=== PATIENT | female | born 1950 | race Caucasian/White ===

== ENCOUNTER → 2017-11-12 | Outpatient (CLI) | payer MEDICARE ==
[~2017-11-12] MED LIST: BISHYD10; BUPR150T2; CEFD300 PO; CEPH500 PO; CLIN150 PO; CLON.1 PO; CYCL10 PO; ERYTHROMYCIN; ESCI10 PO; EZET10-10; FURO20; FURO40 PO; GLIM2 PO; GLIM4 PO; GLIMEPIRIDE PO; GLUCOPHAGE; HYDACE5 PO; HYDACE7.5 PO; HYDMOR2 PO; IBUP600 PO; IBUP800; INS70/30PN; INSUL100I SC; LISI20 PO; LOSA50 PO; LOSARTAN PO; LOSARTAN POTAS100 MG PO; LOVA20 PO; LOVA40; LOVA40 PO; METF500; METF500 PO; METO25ER; METO25ER PO; MORP30ER; Novolin R100 UNIT/M SC; Novolin R100 UNIT/M SS; OLME20 PO; ONDA4 PO; OXAP600; OXYACE5T PO; OXYC5; PHENTERMINE PO; POTCHL20ER; PRED20 PO; Prednisone10 MG PO; RXCYCL10 PO; TIZANIDINE HCL2 MG; VALA500 PO; VALS80; Ventolin/Prove6.7 GM; ZOLOFT; Zovirax400 MG PO; [UNRECOGNIZED DRUG - OTHER]; [UNRECOGNIZED DRUG - OTHER]; [UNRECOGNIZED DRUG - REMARK]; [UNRECOGNIZED DRUG - REMARK]
[2017-11-12 11:32] LABS: BASOPHILS ABSOLUTE AUTO 0.08 K/mm3 (0.00-0.23); BASOPHILS PERCENT AUTO 1 % (0-2); EOSINOPHILS ABSOLUTE AUTO 0.46 K/mm3 (0.00-0.68); EOSINOPHILS PERCENT AUTO 3 % (0-6); Hematocrit 39.1 % (33.0-51.0); Hemoglobin 13.3 g/dL (11.5-16.0); IMMATURE GRAN ABSOLUTE AUTO 0.06 K/mm3 (0.00-0.10); IMMATURE GRAN PERCENT AUTO 0 % (0-1); LYMPHOCYTES ABSOLUTE AUTO 1.89 K/mm3 (0.84-5.20); LYMPHOCYTES PERCENT AUTO 14 % (21-46); MONOCYTES ABSOLUTE AUTO 0.55 K/mm3 (0.16-1.47); MONOCYTES PERCENT AUTO 4 % (4-13); Mean Corpuscular HGB 30.2 pg (26.0-34.0); Mean Corpuscular Volume 89 fL (80-100); Mean Platelet Volume 11.5 fL (9.1-12.4); NEUTROPHILS ABSOLUTE AUTO 10.82 K/mm3 (1.96-9.15); NEUTROPHILS PERCENT AUTO 78 % (41-73); Platelet Count 225 K/mm3 (150-400); RDW Coefficient Variation 12.4 % (11.7-14.2); RDW Standard Deviation 40.6 fL (35.1-46.3); Red Blood Cell Count 4.41 M/mm3 (3.80-5.20); White Blood Cell Count 13.86 K/mm3 (4.00-11.30)
[2017-11-12 11:46] LABS: Albumin, Blood 3.1 g/dL (3.4-5.0); Albumin/Globulin Ratio 0.8 (0.8-1.8); Bilirubin, Total 0.6 mg/dL (0.1-1.0); Bun/Creatinine Ratio 14.9 (12.0-20.0); Calcium, Blood 8.2 mg/dL (8.5-10.1); Creatinine, Blood 1.34 mg/dL (0.40-1.00); Potassium, Blood 4.4 mmol/L (3.5-5.5); Total Protein, Blood 7.1 g/dL (6.4-8.2)
== END | disposition home or self-care (01) ==
LOC: LAB SHORT 11:29 → LAB EV 11:29
PROVIDERS: Physician Assistant
DX: E11.37X1 Type 2 diabetes mellitus with diabetic macular edema, resolved following treatment, right eye (principal); I95.9 Hypotension, unspecified
CPT/HCPCS: 80053; 85025

== ENCOUNTER 2018-12-09 18:13 | Emergency (ER) | payer MEDICARE ==
[~2018-12-09] VITALS: Ht 157.5 cm; Wt 108.9 kg
[2018-12-09] MEDS ORDERED: CLIN300 PO (19:25)
[2018-12-09] MEDS ORDERED: METO50ER PO (19:26)
[2018-12-09] MEDS ORDERED: SPIR25 PO (19:26)
[2018-12-09] MEDS ORDERED: MOTION RELIEF25 MG PO (19:26)
[2018-12-09] MEDS ORDERED: NAPR500 PO (19:26)
[2018-12-09] MEDS ORDERED: METCAR500 PO (19:27)
[2018-12-09] MEDS ORDERED: LOSA50 PO (19:28)
[2018-12-09] MEDS ORDERED: ESCI10 PO (19:28)
[2018-12-09] MEDS ORDERED: OXYB5 PO (19:28)
[2018-12-09] MEDS ORDERED: INSULIN SC (19:29)
== END 2018-12-09 19:34 | disposition home or self-care (01) ==
LOC: ER 18:13
DX: G43.009 Migraine without aura, not intractable, without status migrainosus (principal); I10 Essential (primary) hypertension; E11.9 Type 2 diabetes mellitus without complications; E78.00 Pure hypercholesterolemia, unspecified; Z79.899 Other long term (current) drug therapy
CPT/HCPCS: 36415; 96361; 96374; 96375; 99283-25; J0780; J1200; J1885; J7030

== ENCOUNTER 2019-01-28 23:01 | Emergency (ER) | payer MEDICARE ==
[~2019-01-28] VITALS: Ht 154.9 cm; Wt 106.6 kg
[~2019-01-28 23:01] MED LIST changes: +CLIN300 PO; +INSULIN SC; +METCAR500 PO; +METO50ER PO; +MOTION RELIEF25 MG PO; +NAPR500 PO; +OXYB5 PO; +SPIR25 PO
[2019-01-29 00:50] LABS: BASOPHILS ABSOLUTE AUTO 0.05 K/mm3 (0.00-0.23); BASOPHILS PERCENT AUTO 1 % (0-2); EOSINOPHILS PERCENT AUTO 4 % (0-6); Hematocrit 38.9 % (33.0-51.0); Hemoglobin 12.8 g/dL (11.5-16.0); IMMATURE GRAN ABSOLUTE AUTO 0.06 K/mm3 (0.00-0.10); IMMATURE GRAN PERCENT AUTO 1 % (0-1); LYMPHOCYTES PERCENT AUTO 17 % (21-46); MONOCYTES ABSOLUTE AUTO 0.97 K/mm3 (0.16-1.47); MONOCYTES PERCENT AUTO 9 % (4-13); Mean Corpuscular HGB 31.1 pg (26.0-34.0); Mean Corpuscular HGB Conc 32.9 g/dL (31.5-36.5); Mean Corpuscular Volume 95 fL (80-100); Mean Platelet Volume 11.1 fL (9.1-12.4); NEUTROPHILS ABSOLUTE AUTO 7.55 K/mm3 (1.96-9.15); NEUTROPHILS PERCENT AUTO 69 % (41-73); Platelet Count 218 K/mm3 (150-400); RDW Coefficient Variation 13.3 % (11.7-14.2); Red Blood Cell Count 4.11 M/mm3 (3.80-5.20); White Blood Cell Count 10.93 K/mm3 (4.00-11.30)
[2019-01-29 01:10] LABS: Albumin, Blood 3.3 g/dL (3.4-5.0); Albumin/Globulin Ratio 0.8 (0.8-1.8); Bilirubin, Total 0.4 mg/dL (0.1-1.0); Bun/Creatinine Ratio 18.8 (12.0-20.0); Calcium, Blood 8.1 mg/dL (8.5-10.1); Creatinine, Blood 1.44 mg/dL (0.40-1.00); Globulin, Blood 4.2 g/dL (2.2-4.0); Potassium, Blood 3.8 mmol/L (3.5-5.5); Total Protein, Blood 7.5 g/dL (6.4-8.2)
[2019-01-29] MEDS ORDERED: BENZ100A PO (01:21)
[2019-01-29] MEDS ORDERED: ONDA4ODT MM (01:21)
== END 2019-01-29 01:49 | disposition home or self-care (01) ==
LOC: ER 23:01
PROVIDERS: Emergency Medicine
DX: B34.9 Viral infection, unspecified (principal); E86.0 Dehydration; Z88.0 Allergy status to penicillin; Z88.8 Allergy status to other drugs, medicaments and biological substances; Z88.2 Allergy status to sulfonamides; Z88.6 Allergy status to analgesic agent; Z88.1 Allergy status to other antibiotic agents; Z79.899 Other long term (current) drug therapy; Z79.4 Long term (current) use of insulin; I10 Essential (primary) hypertension; E11.9 Type 2 diabetes mellitus without complications
CPT/HCPCS: 36415; 71046; 80053; 83690; 85025; 96361; 96374; 99284-25; J2405; J7030

== ENCOUNTER 2019-03-22 10:34 | Emergency (ER) | payer MEDICARE ==
[~2019-03-22] VITALS: Ht 157.5 cm; Wt 99.8 kg
[~2019-03-22 10:34] MED LIST changes: +BENZ100A PO; +ONDA4ODT MM
[2019-03-22] MEDS ORDERED: VENL37.5ER PO (11:17)
[2019-03-22 11:56] LABS: BASOPHILS ABSOLUTE AUTO 0.07 K/mm3 (0.00-0.23); BASOPHILS PERCENT AUTO 1 % (0-2); EOSINOPHILS ABSOLUTE AUTO 0.17 K/mm3 (0.00-0.68); EOSINOPHILS PERCENT AUTO 1 % (0-6); Hematocrit 43.1 % (33.0-51.0); Hemoglobin 13.9 g/dL (11.5-16.0); IMMATURE GRAN ABSOLUTE AUTO 0.07 K/mm3 (0.00-0.10); IMMATURE GRAN PERCENT AUTO 1 % (0-1); LYMPHOCYTES ABSOLUTE AUTO 1.31 K/mm3 (0.84-5.20); LYMPHOCYTES PERCENT AUTO 9 % (21-46); MONOCYTES ABSOLUTE AUTO 0.85 K/mm3 (0.16-1.47); MONOCYTES PERCENT AUTO 6 % (4-13); Mean Corpuscular HGB 30.6 pg (26.0-34.0); Mean Corpuscular HGB Conc 32.3 g/dL (31.5-36.5); Mean Corpuscular Volume 95 fL (80-100); Mean Platelet Volume 12.5 fL (9.1-12.4); NEUTROPHILS ABSOLUTE AUTO 11.46 K/mm3 (1.96-9.15); NEUTROPHILS PERCENT AUTO 82 % (41-73); Platelet Count 235 K/mm3 (150-400); RDW Coefficient Variation 13.2 % (11.7-14.2); RDW Standard Deviation 46.1 fL (35.1-46.3); Red Blood Cell Count 4.54 M/mm3 (3.80-5.20); White Blood Cell Count 13.93 K/mm3 (4.00-11.30)
[2019-03-22 12:07] LABS: Bun/Creatinine Ratio 22.4 (12.0-20.0); Calcium, Blood 8.8 mg/dL (8.5-10.1); Creatinine, Blood 1.56 mg/dL (0.40-1.00); Potassium, Blood 4.4 mmol/L (3.5-5.5)
[2019-03-22] MEDS ORDERED: PROM25 PO (12:28)
== END 2019-03-22 12:51 | disposition home or self-care (01) ==
LOC: ER 10:34
PROVIDERS: Emergency Medicine
DX: R11.2 Nausea with vomiting, unspecified (principal); L08.9 Local infection of the skin and subcutaneous tissue, unspecified; T36.8X5A Adverse effect of other systemic antibiotics, initial encounter; Z88.0 Allergy status to penicillin; Z88.2 Allergy status to sulfonamides; Z88.1 Allergy status to other antibiotic agents; Z88.6 Allergy status to analgesic agent; Z88.8 Allergy status to other drugs, medicaments and biological substances; Z79.899 Other long term (current) drug therapy; I10 Essential (primary) hypertension; E11.9 Type 2 diabetes mellitus without complications
CPT/HCPCS: 36415; 80048; 85025; 96361; 96374; 96375; 99283-25; J2405; J7030

== ENCOUNTER 2019-04-05 21:22 | Emergency (ER) | payer MEDICARE ==
[~2019-04-05] VITALS: Ht 157.5 cm; Wt 99.8 kg
[~2019-04-05 21:22] MED LIST changes: +PROM25 PO; +VENL37.5ER PO
[2019-04-05 22:07] LABS: BASOPHILS PERCENT AUTO 1 % (0-2); EOSINOPHILS ABSOLUTE AUTO 0.44 K/mm3 (0.00-0.68); EOSINOPHILS PERCENT AUTO 2 % (0-6); Hematocrit 43.7 % (33.0-51.0); Hemoglobin 14.5 g/dL (11.5-16.0); IMMATURE GRAN ABSOLUTE AUTO 0.08 K/mm3 (0.00-0.10); IMMATURE GRAN PERCENT AUTO 0 % (0-1); LYMPHOCYTES ABSOLUTE AUTO 2.54 K/mm3 (0.84-5.20); LYMPHOCYTES PERCENT AUTO 13 % (21-46); MONOCYTES ABSOLUTE AUTO 1.11 K/mm3 (0.16-1.47); MONOCYTES PERCENT AUTO 6 % (4-13); Mean Corpuscular HGB 30.5 pg (26.0-34.0); Mean Corpuscular HGB Conc 33.2 g/dL (31.5-36.5); Mean Corpuscular Volume 92 fL (80-100); NEUTROPHILS ABSOLUTE AUTO 14.66 K/mm3 (1.96-9.15); NEUTROPHILS PERCENT AUTO 78 % (41-73); Platelet Count 279 K/mm3 (150-400); RDW Standard Deviation 43.5 fL (35.1-46.3); Red Blood Cell Count 4.76 M/mm3 (3.80-5.20); White Blood Cell Count 18.93 K/mm3 (4.00-11.30)
[2019-04-05 22:26] LABS: Albumin, Blood 3.9 g/dL (3.4-5.0); Albumin/Globulin Ratio 0.8 (0.8-1.8); Bilirubin, Total 0.6 mg/dL (0.1-1.0); Bun/Creatinine Ratio 21.3 (12.0-20.0); Calcium, Blood 9.2 mg/dL (8.5-10.1); Creatinine, Blood 1.41 mg/dL (0.40-1.00); Globulin, Blood 4.7 g/dL (2.2-4.0); Potassium, Blood 4.2 mmol/L (3.5-5.5); Total Protein, Blood 8.6 g/dL (6.4-8.2)
[2019-04-05 23:45] LABS: Source, Urine Clean Catch
[2019-04-05 23:52] LABS: Bilirubin, Urine Neg (Neg); Blood, Urine 1+ (Neg); Glucose Qualitative, Urine Neg (Neg); Ketones, Urine 1+ (Neg); Leukocyte Esterase, Urine 2+ (Neg); Nitrite, Urine Neg (Neg); Protein, Urine 1+ (Neg); Urobilinogen, Urine NORM (Normal)
[2019-04-05 23:57] LABS: Appearance, Urine Hazy (Clear); Color, Urine Yellow (P-Yellow)
[2019-04-06 00:25] LABS: Bacteria Many /hpf; Red Blood Cells, Urine Rare /hpf (0-2); Squamous Epithelial Cells Mod /hpf (Few); White Blood Cells, Urine 25-50 /hpf (0-5)
[2019-04-06] MEDS ORDERED: Keflex500 MG PO (01:18)
== END 2019-04-06 02:03 | disposition home or self-care (01) ==
LOC: ER 21:22
PROVIDERS: Emergency Medicine
DX: E86.0 Dehydration (principal); Z88.0 Allergy status to penicillin; Z88.2 Allergy status to sulfonamides; Z88.6 Allergy status to analgesic agent; Z88.1 Allergy status to other antibiotic agents; Z91.048 Other nonmedicinal substance allergy status; Z79.899 Other long term (current) drug therapy; I10 Essential (primary) hypertension; E11.9 Type 2 diabetes mellitus without complications; E78.5 Hyperlipidemia, unspecified
CPT/HCPCS: 36415; 80053; 81001; 83605; 83690; 85025; 87086; 93005; 93010; 96361; 96365; 96375; 99283-25; J0696; J2405; J7030

== ENCOUNTER 2019-06-08 11:10 | Emergency (ER) | payer MEDICARE ==
[~2019-06-08] VITALS: Ht 157.5 cm; Wt 97.5 kg
[~2019-06-08 11:10] MED LIST changes: +Keflex500 MG PO
[2019-06-08 11:39] LABS: BASOPHILS ABSOLUTE AUTO 0.07 K/mm3 (0.00-0.23); BASOPHILS PERCENT AUTO 1 % (0-2); EOSINOPHILS ABSOLUTE AUTO 0.56 K/mm3 (0.00-0.68); EOSINOPHILS PERCENT AUTO 5 % (0-6); Hematocrit 39.7 % (33.0-51.0); Hemoglobin 13.2 g/dL (11.5-16.0); IMMATURE GRAN ABSOLUTE AUTO 0.03 K/mm3 (0.00-0.10); IMMATURE GRAN PERCENT AUTO 0 % (0-1); LYMPHOCYTES ABSOLUTE AUTO 2.87 K/mm3 (0.84-5.20); LYMPHOCYTES PERCENT AUTO 27 % (21-46); MONOCYTES ABSOLUTE AUTO 0.82 K/mm3 (0.16-1.47); MONOCYTES PERCENT AUTO 8 % (4-13); Mean Corpuscular HGB Conc 33.2 g/dL (31.5-36.5); Mean Corpuscular Volume 93 fL (80-100); Mean Platelet Volume 12.6 fL (9.1-12.4); NEUTROPHILS ABSOLUTE AUTO 6.47 K/mm3 (1.96-9.15); NEUTROPHILS PERCENT AUTO 60 % (41-73); Platelet Count 171 K/mm3 (150-400); RDW Coefficient Variation 12.5 % (11.7-14.2); RDW Standard Deviation 42.5 fL (35.1-46.3); Red Blood Cell Count 4.26 M/mm3 (3.80-5.20); White Blood Cell Count 10.82 K/mm3 (4.00-11.30)
[2019-06-08 11:51] LABS: Albumin, Blood 3.5 g/dL (3.4-5.0); Albumin/Globulin Ratio 0.8 (0.8-1.8); Bilirubin, Total 0.5 mg/dL (0.1-1.0); Creatinine, Blood 1.13 mg/dL (0.40-1.00); Globulin, Blood 4.4 g/dL (2.2-4.0); Potassium, Blood 4.2 mmol/L (3.5-5.5); Total Protein, Blood 7.9 g/dL (6.4-8.2)
[2019-06-08 11:55] LABS: Appearance, Urine Clear (Clear); Bilirubin, Urine Neg (Neg); Blood, Urine Neg (Neg); Color, Urine Yellow (P-Yellow); Glucose Qualitative, Urine Neg (Neg); Ketones, Urine Neg (Neg); Leukocyte Esterase, Urine 2+ (Neg); Nitrite, Urine Neg (Neg); Protein, Urine Neg (Neg); Specific Gravity, Urine 1.015 (1.003-1.022); Urobilinogen, Urine NORM (Normal)
[2019-06-08 12:08] LABS: Red Blood Cells, Urine 0-2 /hpf (0-2); Squamous Epithelial Cells Many /hpf (Few)
[2019-06-08] MEDS ORDERED: Atarax10 MG PO (12:08)
[2019-06-08] MEDS ORDERED: Lovastatin10 MG PO (12:08)
[2019-06-08 12:09] LABS: Bacteria Mod /hpf
[2019-06-08] MEDS ORDERED: METFORMIN HCL500 MG PO (12:09)
[2019-06-08] MEDS ORDERED: METOPROLOL ER-1 EAC1 PO (12:09)
[2019-06-08] MEDS ORDERED: MOTION RELIEF25 MG PO (15:08)
[2019-06-08] MEDS ORDERED: DIAZ2 PO (15:08)
== END 2019-06-08 15:34 | disposition home or self-care (01) ==
LOC: ER 11:10
PROVIDERS: Emergency Medicine
DX: R42 Dizziness and giddiness (principal); Z88.0 Allergy status to penicillin; Z88.2 Allergy status to sulfonamides; Z88.6 Allergy status to analgesic agent; Z88.1 Allergy status to other antibiotic agents; Z88.8 Allergy status to other drugs, medicaments and biological substances; Z79.899 Other long term (current) drug therapy; Z79.84 Long term (current) use of oral hypoglycemic drugs; I10 Essential (primary) hypertension; E11.9 Type 2 diabetes mellitus without complications; E78.00 Pure hypercholesterolemia, unspecified
CPT/HCPCS: 70450; 80053; 81001; 82947; 85025; 87086; 93005; 93010; 99284-25; A9270-GY

== ENCOUNTER 2019-08-19 09:34 | Emergency (ER) | payer MEDICARE ==
[~2019-08-19] VITALS: Ht 157.5 cm; Wt 98.9 kg
[~2019-08-19 09:34] MED LIST changes: +Atarax10 MG PO; +DIAZ2 PO; +Lovastatin10 MG PO; +METFORMIN HCL500 MG PO; +METOPROLOL ER-1 EAC1 PO
[2019-08-19 11:35] LABS: BASOPHILS ABSOLUTE AUTO 0.08 K/mm3 (0.00-0.23); BASOPHILS PERCENT AUTO 1 % (0-2); EOSINOPHILS ABSOLUTE AUTO 0.33 K/mm3 (0.00-0.68); EOSINOPHILS PERCENT AUTO 3 % (0-6); Hematocrit 40.6 % (33.0-51.0); Hemoglobin 13.2 g/dL (11.5-16.0); IMMATURE GRAN ABSOLUTE AUTO 0.04 K/mm3 (0.00-0.10); IMMATURE GRAN PERCENT AUTO 0 % (0-1); LYMPHOCYTES ABSOLUTE AUTO 1.99 K/mm3 (0.84-5.20); LYMPHOCYTES PERCENT AUTO 15 % (21-46); MONOCYTES PERCENT AUTO 6 % (4-13); Mean Corpuscular HGB 29.5 pg (26.0-34.0); Mean Corpuscular HGB Conc 32.5 g/dL (31.5-36.5); Mean Corpuscular Volume 91 fL (80-100); Mean Platelet Volume 11.6 fL (9.1-12.4); NEUTROPHILS ABSOLUTE AUTO 10.06 K/mm3 (1.96-9.15); NEUTROPHILS PERCENT AUTO 76 % (41-73); Platelet Count 246 K/mm3 (150-400); RDW Coefficient Variation 11.8 % (11.7-14.2); RDW Standard Deviation 39.2 fL (35.1-46.3); Red Blood Cell Count 4.47 M/mm3 (3.80-5.20)
[2019-08-19 11:49] LABS: Bun/Creatinine Ratio 19.7 (12.0-20.0); Creatinine, Blood 1.17 mg/dL (0.40-1.00); Potassium, Blood 3.6 mmol/L (3.5-5.5); Uric Acid, Blood 5.9 mg/dL (2.6-6.0)
[2019-08-19] MEDS ORDERED: Roxicodone5 MG PO (12:26)
== END 2019-08-19 13:00 | disposition home or self-care (01) ==
LOC: ER 09:34
PROVIDERS: Emergency Medicine
DX: S82.62XA Displaced fracture of lateral malleolus of left fibula, initial encounter for closed fracture (principal); I10 Essential (primary) hypertension; E78.5 Hyperlipidemia, unspecified; E11.9 Type 2 diabetes mellitus without complications; Z88.0 Allergy status to penicillin; Z88.2 Allergy status to sulfonamides; Z88.6 Allergy status to analgesic agent; Z88.1 Allergy status to other antibiotic agents; Z88.8 Allergy status to other drugs, medicaments and biological substances; Z79.899 Other long term (current) drug therapy; X58.XXXA Exposure to other specified factors, initial encounter; I73.9 Peripheral vascular disease, unspecified; I77.9 Disorder of arteries and arterioles, unspecified; E11.65 Type 2 diabetes mellitus with hyperglycemia; I65.21 Occlusion and stenosis of right carotid artery
CPT/HCPCS: 29515; 36415; 70498; 73630; 80048; 84550; 85025; 93922; 99283-25; Q9967

== ENCOUNTER → 2019-09-10 | Outpatient (CLI) | payer MEDICARE ==
[~2019-09-10] MED LIST changes: +Roxicodone5 MG PO
== END | disposition home or self-care (01) ==
LOC: LAB SHORT 17:50 → LAB 17:50
DX: N39.0 Urinary tract infection, site not specified (principal)
CPT/HCPCS: 87086

== ENCOUNTER → 2020-07-06 | Outpatient (CLI) | payer MEDICARE ==
[2020-07-06 11:29] LABS: CHOL/HDL RATIO 4.9; Cholesterol 191 mg/dL (50-200); HDL Cholesterol 39 mg/dL (>39); LDL/HDL RATIO 2.8; Low Density Lipoprotein Chol 111 mg/dL (0-110); Triglycerides 207 mg/dL (30-160); Very Low Density Lipoprot Chol 41 mg/dL (6-32)
[2020-07-06 11:36] LABS: Albumin, Blood 3.4 g/dL (3.4-5.0); Albumin/Globulin Ratio 0.9 (0.8-1.8); Bilirubin, Total 0.5 mg/dL (0.1-1.0); Bun/Creatinine Ratio 29.4 (12.0-20.0); Calcium, Blood 9.3 mg/dL (8.5-10.1); Creatinine, Blood 1.09 mg/dL (0.40-1.00); Globulin, Blood 3.6 g/dL (2.2-4.0)
== END | disposition home or self-care (01) ==
LOC: OLS 09:14 → LAB SHORT 09:14
PROVIDERS: Hospitalist
DX: E11.42 Type 2 diabetes mellitus with diabetic polyneuropathy (principal); I10 Essential (primary) hypertension
CPT/HCPCS: 36415; 80053; 80061; 82043; 83036

== ENCOUNTER → 2021-06-22 | Outpatient (CLI) | payer MEDICARE ==
[~2021-06-22] MED LIST changes: +CLOP75 PO; +HUMULIN R100 UNIT/2 SC; +TOPI100 PO
== END ==
LOC: LAB 14:28 → LAB SHORT 14:28
DX: E11.42 Type 2 diabetes mellitus with diabetic polyneuropathy (principal); Z79.4 Long term (current) use of insulin; Z88.0 Allergy status to penicillin; Z88.2 Allergy status to sulfonamides; Z88.6 Allergy status to analgesic agent; Z88.1 Allergy status to other antibiotic agents; Z91.048 Other nonmedicinal substance allergy status
CPT/HCPCS: 82043

== ENCOUNTER → 2022-03-14 | Outpatient (CLI) | payer MEDICARE ==
[2022-03-15 11:19] LABS: Percent Saturation 21.3 % (15.0-50.0)
== END | disposition home or self-care (01) ==
LOC: LAB 16:35 → LAB SHORT 16:35
PROVIDERS: Hospitalist
DX: D50.8 Other iron deficiency anemias (principal); L50.9 Urticaria, unspecified
CPT/HCPCS: 82728; 83540; 83550

== ENCOUNTER → 2022-03-24 | Outpatient (CLI) | payer MEDICARE ==
[~2022-03-24] MED LIST changes: +ARNUITY ELLIP200 MCG IH; +ARNUITY ELLIP200 MCG INH; +CEFU500T30 PO; +CODACE30 PO; +DOXY100 PO; +HYDHCL25 PO; +KETO15TC TOP; +Ketoconazole15 GM TOP; +LIDO700A20 TOP; +MASOPHEN500 MG PO; +METFORMIN ER G500 MG PO; +NORCO 7.5-3251 EAC3 PO; +Phenergan25 M1 PO; +TIZA4 PO
[2022-03-24 11:48] LABS: BASOPHILS ABSOLUTE AUTO 0.03 K/mm3 (0.00-0.23); BASOPHILS PERCENT AUTO 0 % (0-2); EOSINOPHILS PERCENT AUTO 0 % (0-6); Hematocrit 41.6 % (33.0-51.0); Hemoglobin 14.5 g/dL (11.5-16.0); IMMATURE GRAN PERCENT AUTO 1 % (0-1); LYMPHOCYTES ABSOLUTE AUTO 1.23 K/mm3 (0.84-5.20); LYMPHOCYTES PERCENT AUTO 7 % (21-46); MONOCYTES ABSOLUTE AUTO 0.17 K/mm3 (0.16-1.47); MONOCYTES PERCENT AUTO 1 % (4-13); Mean Corpuscular HGB 30.1 pg (26.0-34.0); Mean Corpuscular HGB Conc 34.9 g/dL (31.5-36.5); Mean Corpuscular Volume 87 fL (80-100); Mean Platelet Volume 11.8 fL (9.1-12.4); NEUTROPHILS ABSOLUTE AUTO 15.26 K/mm3 (1.96-9.15); NEUTROPHILS PERCENT AUTO 91 % (41-73); Platelet Count 266 K/mm3 (150-400); RDW Standard Deviation 40.7 fL (35.1-46.3); Red Blood Cell Count 4.81 M/mm3 (3.80-5.20); White Blood Cell Count 16.79 K/mm3 (4.00-11.30)
[2022-03-24 11:56] LABS: Albumin, Blood 3.6 g/dL (3.4-5.0); Albumin/Globulin Ratio 0.8 (0.8-1.8); Bilirubin, Total 0.6 mg/dL (0.1-1.0); Bun/Creatinine Ratio 26.7 (12.0-20.0); Calcium, Blood 8.9 mg/dL (8.5-10.1); Creatinine, Blood 1.87 mg/dL (0.40-1.00); Globulin, Blood 4.5 g/dL (2.2-4.0); Potassium, Blood 4.3 mmol/L (3.5-5.5); Total Protein, Blood 8.1 g/dL (6.4-8.2)
[2022-03-24 12:10] LABS: Amylase, Blood 17 U/L (25-115); CPK Creatine Kinase 237 U/L (26-192)
== END ==
LOC: LAB SHORT 11:42 → LAB 11:42
PROVIDERS: General Practice
DX: R53.81 Other malaise (principal)
CPT/HCPCS: 80053; 82150; 82550; 83880; 84484; 85025

== ENCOUNTER 2022-07-12 15:14 | Observation (INO) | payer MEDICARE ==
[~2022-07-12] VITALS: Ht 154.9 cm; Wt 96.9 kg
[2022-07-12 15:35] LABS: BASOPHILS ABSOLUTE AUTO 0.02 K/mm3 (0.00-0.23); BASOPHILS PERCENT AUTO 1 % (0-2); EOSINOPHILS ABSOLUTE AUTO 0.06 K/mm3 (0.00-0.68); EOSINOPHILS PERCENT AUTO 2 % (0-6); Hematocrit 39.3 % (33.0-51.0); Hemoglobin 13.3 g/dL (11.5-16.0); IMMATURE GRAN ABSOLUTE AUTO 0.01 K/mm3 (0.00-0.10); IMMATURE GRAN PERCENT AUTO 0 % (0-1); LYMPHOCYTES ABSOLUTE AUTO 1.26 K/mm3 (0.84-5.20); LYMPHOCYTES PERCENT AUTO 35 % (21-46); MONOCYTES ABSOLUTE AUTO 0.48 K/mm3 (0.16-1.47); MONOCYTES PERCENT AUTO 13 % (4-13); Mean Corpuscular HGB 29.8 pg (26.0-34.0); Mean Corpuscular HGB Conc 33.8 g/dL (31.5-36.5); Mean Corpuscular Volume 88 fL (80-100); Mean Platelet Volume 12.1 fL (9.1-12.4); NEUTROPHILS ABSOLUTE AUTO 1.74 K/mm3 (1.96-9.15); NEUTROPHILS PERCENT AUTO 49 % (41-73); Platelet Count 129 K/mm3 (150-400); RDW Coefficient Variation 12.6 % (11.7-14.2); RDW Standard Deviation 41.1 fL (35.1-46.3); Red Blood Cell Count 4.46 M/mm3 (3.80-5.20); White Blood Cell Count 3.57 K/mm3 (4.00-11.30)
[2022-07-12 16:06] LABS: Albumin/Globulin Ratio 0.8 (0.8-1.8); Bilirubin, Total 0.3 mg/dL (0.1-1.0); Bun/Creatinine Ratio 13.7 (12.0-20.0); Calcium, Blood 8.1 mg/dL (8.5-10.1); Creatinine, Blood 1.53 mg/dL (0.40-1.00); Globulin, Blood 3.7 g/dL (2.2-4.0); Magnesium, Blood 2.2 mg/dL (1.6-2.4); Potassium, Blood 3.5 mmol/L (3.5-5.5); Thyroid Stimulating Hormone 12.2 uIU/mL (0.360-4.800); Total Protein, Blood 6.7 g/dL (6.4-8.2)
[2022-07-12 17:17] LABS: Influenza A, PCR NEGATIVE (NEGATIVE); Influenza B, PCR NEGATIVE (NEGATIVE); Resp Syncytial Virus, PCR NEGATIVE (NEGATIVE)
[2022-07-12 17:25] LABS: SARS-Cov-2 (COVID-19) PCR, MMC POSITIVE (NEGATIVE)
--- NOTE | 2022-07-12 18:39 | NUR ---
PT ARRIVED TO ICU 12 FROM ER AT 1820. A/O X4. DENIES CP OR PRESSURE, NO N/V, NO SOB. PT ABLE TO ASSIST WITH TURNING. USED BEDPAN AND ATTENDS PLACED. PT IS CALLING HER FAMILY TO UPDATE THEM. PT IS NOT ON EPI GTT. HR IN THE 50'S, BP STABLE. NO SIGN OF DISTRESS.
[2022-07-12] MEDS ORDERED: CLOP75 PO (19:45)
[2022-07-12] MEDS ORDERED: PROBIOTIC1 EA13 PO (19:45)
--- NOTE | 2022-07-12 20:00 | NUR ---
PT AOX3, ABLE TO MAKE NEEDS KNOWN. STATES SHE HAS BEEN FEELING ILL FOR ABOUT A WEEK WITH COUGH, WEAKNESS HAS BEEN GOING ON FOR SEVERAL MONTHS. WAS ADMITTED BACK IN [place] FOR OVERDOSE ON HER MUCSLE RELAXERS AND HAD BRADYCARDIA THAN. STATES APPEITE HAS BEEN FAIR, SHE STATES SHE HAS LOST WEIGHT SINCE HER APPT 3 WEEKS AGO WHERE SHE WEIGHTED AROUND 230, NOW 200 LBS. HAS BEEN FALLING ALOT. STATES SHE FEELS LIKE A DRUNK WHEN SHE WALKS. LS CLEAR, DIM IN BASES, DRY COUGH, HACKING AT TIMES, SATS GREATER 95% ON RA. HR IN THE 40'S, WEAKNESS AND DIZZINESS WHEN GETTING UP. DENIES CHEST PAIN. ABD SOFT, BM TODAY. POOR URINE OUTPUT, STATES SHE HAS BEEN FIGHTING YEAST INFECTIONS FOR SOME TIME. NO SIGN OF YEAST AT THIS TIME. DOES HAVE SCABS SCATTERED ACROSS ABDOMIN, REPORTS HISTORY OF PICKING. REDNESS UNDER BREAST AND PANUS, CLEANSED AND POWDER APPLIED. ABRASION TO RIGHT KNEE CLEANSED AND LEFT OPEN TO AIR. LR STARTED PER ORDERS. WILL CONTINUE TO MONITOR.
[2022-07-13 03:46] LABS: BASOPHILS ABSOLUTE AUTO 0.02 K/mm3 (0.00-0.23); BASOPHILS PERCENT AUTO 1 % (0-2); EOSINOPHILS ABSOLUTE AUTO 0.03 K/mm3 (0.00-0.68); EOSINOPHILS PERCENT AUTO 1 % (0-6); Hematocrit 42.4 % (33.0-51.0); Hemoglobin 14.3 g/dL (11.5-16.0); IMMATURE GRAN ABSOLUTE AUTO 0.01 K/mm3 (0.00-0.10); IMMATURE GRAN PERCENT AUTO 0 % (0-1); LYMPHOCYTES ABSOLUTE AUTO 1.47 K/mm3 (0.84-5.20); LYMPHOCYTES PERCENT AUTO 40 % (21-46); MONOCYTES ABSOLUTE AUTO 0.44 K/mm3 (0.16-1.47); MONOCYTES PERCENT AUTO 12 % (4-13); Mean Corpuscular HGB 29.9 pg (26.0-34.0); Mean Corpuscular HGB Conc 33.7 g/dL (31.5-36.5); Mean Corpuscular Volume 89 fL (80-100); Mean Platelet Volume 12.1 fL (9.1-12.4); NEUTROPHILS ABSOLUTE AUTO 1.68 K/mm3 (1.96-9.15); NEUTROPHILS PERCENT AUTO 46 % (41-73); Platelet Count 120 K/mm3 (150-400); RDW Coefficient Variation 12.5 % (11.7-14.2); RDW Standard Deviation 40.8 fL (35.1-46.3); Red Blood Cell Count 4.79 M/mm3 (3.80-5.20); White Blood Cell Count 3.65 K/mm3 (4.00-11.30)
[2022-07-13 04:22] LABS: Albumin, Blood 3.3 g/dL (3.4-5.0); Albumin/Globulin Ratio 0.8 (0.8-1.8); Bilirubin, Total 0.3 mg/dL (0.1-1.0); Bun/Creatinine Ratio 13.5 (12.0-20.0); Calcium, Blood 8.4 mg/dL (8.5-10.1); Creatinine, Blood 1.26 mg/dL (0.40-1.00); Magnesium, Blood 2.4 mg/dL (1.6-2.4); Potassium, Blood 3.6 mmol/L (3.5-5.5); Total Protein, Blood 7.3 g/dL (6.4-8.2)
--- NOTE | 2022-07-13 06:06 | NUR ---
SHIFT SUMMARY: AOX3, ABLE TO SHIFT SELF IN BED. PAIN NOTED IN BACK, WAS GIVEN HOME DOSE OF NORCO EARLY THIS AM WHICH HELPED. REMAINS ON RA, DOES HAVE OCCATIONAL COUGHING SPASMS, MAINTAINS >90%. BRADYCARDIC MAJORITY OF SHIFT IN THE 40-50'S, DENIED SYMTPOMS BUT SHE DID REMAIN BEDFAST. INCREASE IN URINE OUTPUT, ABLE TO USE BEDPAN, DOES HAVE INCONTIENCE WITH COUGH. LR INFUSING AT 100ML/HR. BP INCREASED SLOWLY T/O NIGHT SHE DID NOT TAKE HER HOME BP MEDS PRIOR TO COMING. ORDER FOR LOSARTAN 1 TIME DOSE AND HYDRALAZINE, BOTH GIVEN TO GET BP WNL. REPORTS POOR APPETITE, AND LOSS OF WEIGHT RECENTLY IN LAST 2 WEEKS, REDNESS UNDER BREAST AND PANUS, POWDER APPLIED, BOIL ON RIGHT LABIA, AND ABRASION TO RIGHT KNEE. PICS IN CHART. WILL REPORT TO DAYSHIFT.
[2022-07-13] MEDS ORDERED: MECL25 PO (11:20)
--- NOTE | 2022-07-13 12:16 | NUR ---
DISCHARGE PT DISCHARGED TO HOME WITH HEALTH. PT REQUESTED INFORMATION BE FAXED TO [email or web address] [facility], WHICH WAS DONE. MEDICATIONS FAXED TO [facility]. REVIEWED DC INSTRUCTIONS WITH PT AND HER . EMPHASIZED NEED TO STOP TAKING METOPROLOL. PT HAS AN APPT ALREADY SCHEDULED WITH DR. MARCUS FOR SUNDAY. ADVISED HER TO CALL THE OFFICE TOMORROW AND INFORM THEM THAT SHE TESTED POSITIVE FOR COVID TO DETERMINE IF ADDITIONAL STEPS ARE NEEDED FOR HER APPOINTMENT. ALL BELONGINGS SENT HOME WITH PT.
== END 2022-07-13 12:10 | disposition home or self-care (01) ==
LOC: ER 15:14 → ICUW 17:20
PROVIDERS: Emergency Medicine; Family Medicine; ADMIT Hospitalist
DX: R00.1 Bradycardia, unspecified (principal); I95.9 Hypotension, unspecified; N17.9 Acute kidney failure, unspecified; I11.0 Hypertensive heart disease with heart failure; N18.9 Chronic kidney disease, unspecified; R53.1 Weakness; E78.5 Hyperlipidemia, unspecified; I35.0 Nonrheumatic aortic (valve) stenosis; E11.42 Type 2 diabetes mellitus with diabetic polyneuropathy; U07.1 COVID-19; E03.8 Other specified hypothyroidism; E11.22 Type 2 diabetes mellitus with diabetic chronic kidney disease; Z88.0 Allergy status to penicillin; Z88.2 Allergy status to sulfonamides; Z88.1 Allergy status to other antibiotic agents; Z88.6 Allergy status to analgesic agent; Z91.048 Other nonmedicinal substance allergy status
CPT/HCPCS: 0241U; 36415; 71045; 80053; 82947; 83735; 83880; 84439; 84443; 84484; 85025; 93005; 93010; 96361; 96372; 96375; 97161; A9270; G0378; J0171; J0360; J0461; J1650; J2765; J7030; J7060; J7120

== ENCOUNTER 2022-07-17 19:36 | Emergency (ER) | payer MEDICARE ==
[~2022-07-17 19:36] MED LIST changes: +MECL25 PO; +PROBIOTIC1 EA13 PO
== END 2022-07-18 01:43 | disposition home or self-care (01) ==
DX: U07.1 COVID-19 (principal); I10 Essential (primary) hypertension; E11.9 Type 2 diabetes mellitus without complications; Z79.899 Other long term (current) drug therapy

== ENCOUNTER 2022-07-22 06:11 | Inpatient (IN) | payer MEDICARE ==
[~2022-07-22] VITALS: Ht 165.1 cm; Wt 89.5 kg
[2022-07-22 07:24] LABS: Influenza A, PCR NEGATIVE (NEGATIVE); Influenza B, PCR NEGATIVE (NEGATIVE); Resp Syncytial Virus, PCR NEGATIVE (NEGATIVE)
[2022-07-22 07:33] LABS: Albumin, Blood 2.4 g/dL (3.4-5.0); Albumin/Globulin Ratio 0.5 (0.8-1.8); Bilirubin, Total 0.9 mg/dL (0.1-1.0); Calcium, Blood 8.3 mg/dL (8.5-10.1); Creatinine, Blood 0.96 mg/dL (0.40-1.00); Globulin, Blood 4.6 g/dL (2.2-4.0); Potassium, Blood 4.6 mmol/L (3.5-5.5)
[2022-07-22 07:41] LABS: Hematocrit 43.8 % (33.0-51.0); Hemoglobin 15.1 g/dL (11.5-16.0); Mean Corpuscular HGB 29.3 pg (26.0-34.0); Mean Corpuscular HGB Conc 34.5 g/dL (31.5-36.5); Mean Corpuscular Volume 85 fL (80-100); Mean Platelet Volume 12.3 fL (9.1-12.4); Platelet Count 161 K/mm3 (150-400); RDW Coefficient Variation 13.1 % (11.7-14.2); RDW Standard Deviation 41.1 fL (35.1-46.3); Red Blood Cell Count 5.15 M/mm3 (3.80-5.20)
[2022-07-22 07:52] LABS: White Blood Cell Count 13.04 K/mm3 (4.00-11.30)
[2022-07-22 08:03] LABS: SARS-Cov-2 (COVID-19) PCR, MMC POSITIVE (NEGATIVE)
[2022-07-22 08:36] LABS: BASOPHILS PERCENT MAN 0 % (0-2); EOSINOPHILS PERCENT MAN 0 % (0-6); LYMPHOCYTES ABSOLUTE MAN 1.69 K/mm3 (0.84-5.20); LYMPHOCYTES PERCENT MAN 12 % (21-46); MONOCYTES ABSOLUTE MAN 0.52 K/mm3 (0.16-1.47); MONOCYTES PERCENT MAN 4 % (4-13); NEUTROPHILS ABSOLUTE MAN 10.82 K/mm3 (1.96-9.15); SEG NEUTROPHILS PERCENT MAN 83 % (41-73); TOTAL CELLS COUNTED 100
[2022-07-22 08:44] LABS: LYMPHOCYTES % ATYPICAL MANUAL 1 % (0-0)
[2022-07-22 09:21] LABS: Base Excess Venous -7.8 mmol/L; PCO2 Venous 32.7 mmHg (38-42); pH Blood Venous 7.35 (7.34-7.37)
[2022-07-22 11:37] LABS: Source, Urine Foley catheter
[2022-07-22 11:49] LABS: Appearance, Urine Hazy (Clear); Bilirubin, Urine Neg (Neg); Blood, Urine 4+ (Neg); Color, Urine Amber (P-Yellow); Glucose Qualitative, Urine Neg (Neg); Ketones, Urine 3+ (Neg); Leukocyte Esterase, Urine 1+ (Neg); Nitrite, Urine Neg (Neg); Protein, Urine 4+ (Neg); Urobilinogen, Urine 2+ (Normal)
--- NOTE | 2022-07-22 11:51 | NUR ---
ASSUMED CARE PT IS ALERT TO LOCATION, BUT WAS UNABLE TO ANSWER OTHER ORIENTATION QUESTIONS. PT KEPT REPEATING THAT SHE HAS A SPINE ISSUES AND IS VERY VAGUE WHEN ASKED IF SHE HAS CP, SOB, NAUSEA, ETC. SPO2 >92% ON BIPAP 10/16 FIO2 90%; MAP >65. PT IS EXTREMELY NAUSEOUS W/ ANY KIND OF MOVEMENT. ZOFRAN AND PHENERGAN GIVEN PER ED RN, BUT PROVIDES ONLY SHORT RELIEF. PT DOES NOT TOLERATE BEING OFF BIPAP; SPO2 DROPPED TO LOW 80S WHEN TRIALING HIGH FLOW NC D/T NAUSEA. DR SANDOVAL HAS BEEN CONSULTED FOR PULMONARY. ECHO IN PROGRESS. PE STUDY ORDERED, BUT PT NOT ABLE TO TOLERATE AT THIS MOMENT. PT SPOUSE CONTACTED AND GIVEN UPDATE; WILL BE IN TO VISIT. PALLIATIVE CARE CONSULTED.
[2022-07-22 12:01] LABS: Anti-Xa UFH, PHA Monitoring <0.10 IU/mL; International Normalized Ratio 1.32; Prothrombin Time Results 13.6 Sec (9.7-11.5)
[2022-07-22 12:40] LABS: Bacteria Mod /hpf; Red Blood Cells, Urine 0-2 /hpf (0-2); Squamous Epithelial Cells Rare /hpf (Few)
--- NOTE | 2022-07-22 16:39 | NUR ---
UPDATE PT INTUBATED AT 5ML PROPOFOL IN AT 1541, 1543, AND 1544. INTUBATED AT 1547. ETT 8.0, 24CM AT [facility]. AC/VC 350/20/10/100%. OG TUBE PLACED. BOTH LINES CONFIRMED PER CHEST X-RAY/DR SANDOVAL.
--- NOTE | 2022-07-22 19:06 | NUR ---
PT REMAINS INTUBATED AND SEDATED ON PROPOFOL @ 20 MCG/KG/MIN. VENT VC+ 20/350/10/100%-SATS >90% PT DOES NOT TOLERATE LYING FLAT-SATS DROP TO 80'S. CT CHEST/PE STUDY COMPLETE-RESULTS PENDING. POST INTUBATION ABG NOT DONE. RT CALLED TO REQUEST STAT ABG PER REQUEST. ECG SHOWS SR WITH RATE IN THE 80'S. MAP TRENDING >60-TOTAL OF 2 LITERS LR HAS BEEN BOLUSED. LEVOPHED DRIP IS ORDERED IF NEEDED FOR MAP <60-65. OGT WITH COFFEE GROUND LIKE DRAINAGE. URINE OUTPUT 200 CC FOR THIS SHIFT. HEPARIN DRIP OFF FOR APROXIMATELY [address] PICC LINE FAILED. DR. SOOD AT BEDSIDE TO PLACE CENTRAL LINE. UPDATE GIVEN. REPORT GIVEN TO ABDULLAHI PEDERSEN.
--- NOTE | 2022-07-22 19:07 | NUR ---
TOOK OVER CARE OF PT AT 1905, PT HAS LR BOLUS RUNNING WO, PROPOFOL 20MCG, HEPARING PAUSED DUE TO LINE BEING PLACED. PT IS VENTED ON ACVC 20/350/100/10.
[2022-07-22 19:31] LABS: PCO2 Arterial 36 mmHg (35-45); PO2 Arterial 129 mmHg (80-100); pH Blood Arterial 7.35 (7.35-7.45)
[2022-07-23 04:54] LABS: Hematocrit 35.8 % (33.0-51.0); Hemoglobin 12.1 g/dL (11.5-16.0); Mean Corpuscular HGB 29.4 pg (26.0-34.0); Mean Corpuscular HGB Conc 33.8 g/dL (31.5-36.5); Mean Corpuscular Volume 87 fL (80-100); Mean Platelet Volume 12.9 fL (9.1-12.4); Platelet Count 137 K/mm3 (150-400); RDW Coefficient Variation 13.4 % (11.7-14.2); RDW Standard Deviation 42.5 fL (35.1-46.3); Red Blood Cell Count 4.12 M/mm3 (3.80-5.20)
[2022-07-23 04:59] LABS: White Blood Cell Count 13.92 K/mm3 (4.00-11.30)
--- NOTE | 2022-07-23 05:21 | NUR ---
SUMMARY NEURO: DURING SEDATION HOLIDAY PT FOLLOWED COMMANDS ON ALL EXTREMETIES BUT PT WAS SLOW TO RESPOND THROUGHOUT AND WOULD NOT FOLLOW COMMANDS ON LEFT SIDE UNTIL AFTER NOXIOUS STIMULI APPLIED. PUPILS ROUND, BRISK AND EQUAL. PT CURRENTLY SEDATED ON 60MEQ OF PROPOFOL DUE TO POOR VENT COMPLIANCE AND AGITATION. CARDIAC: PT STARTED THE SHIFT WITH A HR IN THE 80'S, IT HAS SINCE INCREASED TO HIGH 90'S, AT TIMES OVER 100. BLOOD PRESSURES HAVE BEEN LABILE, DEPENDING ON LEVEL OF SEDATION. NO PRESSORS NEEDED THIS SHIFT. PULSES PALPABLE, ALTHOUGH FAINT PEDAL PULSES AND COOL EXTREMETIES. PT IS DEVELOPING TRACE/+1 EDEMA. TROPONINS TRENDING DOWN. HEPARIN GTT AT 15UNITS/KG/HR. LUNGS: PT IS VENTED AC/VC 20/350/80%/10. CLEAR UPPER LOBES, OTHERWISE DIMINISHED. ETCO2 HAS RANGED FROM 20-15 THIS SHIFT. PT BECOMING MORE FRAGILE TO TURNS NIGHT GOES ON, WITH END TIDAL DROPPING RAPIDLY 4 POINTS, HR INCREASING AND DESATTING INTO THE 70'S. EVEN WHILE PROPOFOL MAXED, PT IS BREATHING 25-30 PER MINUTE. SMALL AMOUNT OF SAMPSON/PINK SPUTUM SUCTIONED- SPUTUM CX SENT TO LAB. PT HAS POOR DENTITION, DRY ULCERATED ORAL MUCOSA. YELLOW SLOUGH NOTED DURING ORAL CARE, PERSISTED EVEN WITH Q2 CARE. GI: HYPOACTIVE BOWEL SOUNDS. SOFT, DISTENDED ABDOMEN. OG TO LIWS- NO TF ORDERS IN PLACE. NO BM THIS SHIFT. : GARCIA IN PLACE, DRAINING TO GRAVITY BELOW THE LEVEL OF BLADDER. HAYDEE/YELLOW IN COLOR. LOW URINE OUTPUT WITH A TOTAL OF 300ML THIS SHIFT. SKIN: PT IS SCATTERED WITH HEALED LESION SCARS AND SMALL SCABS. MEPILEX PLACED ON PT'S COCCYX, SMALL OPENING ON GLUTEAL FOLD. SMALL OPENING ON THIRD TOE OF LEFT FOOT. PT'S BLOOD SUGAR HAS BEEN ELEVATED THROUGHOUT THE NIGHT DESPITE INSULIN.
[2022-07-23 05:22] LABS: BAND PERCENT MAN 1 % (0-8); BASOPHILS PERCENT MAN 0 % (0-2); EOSINOPHILS PERCENT MAN 0 % (0-6); LYMPHOCYTES ABSOLUTE MAN 0.55 K/mm3 (0.84-5.20); LYMPHOCYTES PERCENT MAN 4 % (21-46); MONOCYTES ABSOLUTE MAN 0.41 K/mm3 (0.16-1.47); MONOCYTES PERCENT MAN 3 % (4-13); NEUTROPHILS ABSOLUTE MAN 12.94 K/mm3 (1.96-9.15); SEG NEUTROPHILS PERCENT MAN 92 % (41-73); TOTAL CELLS COUNTED 100
[2022-07-23 05:25] LABS: Albumin, Blood 1.8 g/dL (3.4-5.0); Albumin/Globulin Ratio 0.5 (0.8-1.8); Bilirubin, Total 0.7 mg/dL (0.1-1.0); Bun/Creatinine Ratio 27.9 (12.0-20.0); Calcium, Blood 7.4 mg/dL (8.5-10.1); Creatinine, Blood 1.29 mg/dL (0.40-1.00); Globulin, Blood 3.6 g/dL (2.2-4.0); Magnesium, Blood 2.2 mg/dL (1.6-2.4); Phosphorus, Blood 1.3 mg/dL (2.5-4.9); Potassium, Blood 3.3 mmol/L (3.5-5.5); Total Protein, Blood 5.4 g/dL (6.4-8.2)
[2022-07-23 06:10] LABS: PCO2 Arterial 40.2 mmHg (35-45); PO2 Arterial 63.4 mmHg (80-100); pH Blood Arterial 7.35 (7.35-7.45)
--- NOTE | 2022-07-23 08:00 | NUR ---
ASSUMED CARE PT IS INTUBATED AND SEDATED ON 60MCG OF PROPOFOL. SPO2 >92% ON AC/VC 20/350/10/100%. MAP >65. HEPARIN ON SB;LR AT 100MLS/HR. PLAN TO PUT PT ON SEDATION VACATION AND TITRATE PROPOFOL DOWN. PT REMAINS AFEBRILE. LUNG SOUNDS ARE COARSE. HYPOACTIVE BOWEL TONES.
--- NOTE | 2022-07-23 15:49 | NUR ---
UPDATE NITROGLYCERINE BEING USED FOR INFILTRATION D/T PT NOT ABLE TO TOLERATE INVASIVE PROCEDURE W/ REGITINE ADMINISTRATION.
--- NOTE | 2022-07-23 16:39 | NUR ---
UPDATE TUBE FEED STARTED PER ORDER.
--- NOTE | 2022-07-23 16:53 | NUR ---
SHIFT SUMMARY PT IS INTUBATED AND SEDATED ON 45MCG OF PROPOFOL. 20/350/10/75%. MAP >65. HEPARIN AT 12 UNITS. TUBE FEED AT GOAL RATE OF 40MLS/HR. SEDATION VACATION WAS PERFORMED THIS AM FOR 15 MINUTES WHILE PERFORMING AM CARE; PT DID NOT TOLERATE AND BEGAN TO HAVE A RR IN THE HIGH 30'S TO 40S/COUGHING. DURING SEDATION VACATION, PT ONLY RESPONDED TO PAINFUL STIMULI AND DID NOT OPEN EYES/FOLLOW COMMANDS. WAS ABLE TO TITRATE FROM 60-45MCG TODAY.
--- NOTE | 2022-07-23 19:59 | NUR ---
TOOK OVER CARE OF PT AT 1910. PT VENTED ON AC/VC 20/350/65%/10, PROPOFOL AT 40MCG, HEPARIN ON SB, LR INFUSING.
[2022-07-24 01:54] LABS: BASOPHILS ABSOLUTE AUTO 0.03 K/mm3 (0.00-0.23); BASOPHILS PERCENT AUTO 0 % (0-2); EOSINOPHILS PERCENT AUTO 0 % (0-6); Hematocrit 33.4 % (33.0-51.0); Hemoglobin 11.3 g/dL (11.5-16.0); Mean Corpuscular HGB 29.4 pg (26.0-34.0); Mean Corpuscular HGB Conc 33.8 g/dL (31.5-36.5); Mean Corpuscular Volume 87 fL (80-100); NRBC ABSOLUTE 0.03 K/mm3 (0.00-0.02); NRBC Auto 0.2 /100 WBC (0.0-0.2); Platelet Count 154 K/mm3 (150-400); RDW Coefficient Variation 13.7 % (11.7-14.2); RDW Standard Deviation 43.1 fL (35.1-46.3); Red Blood Cell Count 3.84 M/mm3 (3.80-5.20); White Blood Cell Count 18.93 K/mm3 (4.00-11.30)
[2022-07-24 02:04] LABS: IMMATURE GRAN ABSOLUTE AUTO 0.19 K/mm3 (0.00-0.10); IMMATURE GRAN PERCENT AUTO 1 % (0-1); LYMPHOCYTES ABSOLUTE AUTO 1.26 K/mm3 (0.84-5.20); LYMPHOCYTES PERCENT AUTO 7 % (21-46); MONOCYTES ABSOLUTE AUTO 0.94 K/mm3 (0.16-1.47); MONOCYTES PERCENT AUTO 5 % (4-13); Mean Platelet Volume 13.3 fL (9.1-12.4); NEUTROPHILS ABSOLUTE AUTO 16.51 K/mm3 (1.96-9.15); NEUTROPHILS PERCENT AUTO 87 % (41-73)
[2022-07-24 02:07] LABS: Albumin, Blood 1.8 g/dL (3.4-5.0); Albumin/Globulin Ratio 0.5 (0.8-1.8); Bilirubin, Total 0.5 mg/dL (0.1-1.0); Bun/Creatinine Ratio 31.5 (12.0-20.0); Creatinine, Blood 1.27 mg/dL (0.40-1.00); Globulin, Blood 3.4 g/dL (2.2-4.0); Phosphorus, Blood 2.2 mg/dL (2.5-4.9); Total Protein, Blood 5.2 g/dL (6.4-8.2)
--- NOTE | 2022-07-24 02:20 | NUR ---
PROVIDER NOTIFIED OF LAB RSULTS
--- NOTE | 2022-07-24 05:22 | NUR ---
SUMMARY NEURO: DURING SEDATION HOLIDAY, PROPOFOL WAS PAUSED FOR 35 MINUTES PRIOR TO ATTEMPTING NEURO ASSESSMENT. PT WAS STERNAL RUBBED TO ATTEMOT TO GET PT TO OPEN THEIR EYES UNSUCCESSFULLY. NO MOVEMENT TO BUE WHEN PRESSURE APPLIED TO NAILBEDS, BUT PT DID MOVE FEET IN RESPONSE TO THE PRESSURE APPLIED TO BUE. PT THEN FOLLOWED COMMAND TO WIGGLE TOES ON THE RIGHT SIDE. PT FOLLOWED COMMAND TO WIGGLE TOES ON LEFT SIDE AFTER NOXIOUS STIMULI APPLIED BUT WAS NOTABLE WEAKER THAN RIGHT. THEN FINALLY PT WEEKLY OPENED EYES TO VOICE COMMAND. RESPIRATIONS DURING THIS TIME INCREASED TO MID TO HIGH 40'S. LITTLE TO NO GAG REFLEX NOTED WITH SEDATION ON. CARDIAC: PT HAS BEEN TACHYCARDIC 110'S. DAMPENED WAVEFORM ON TELEMETRY. INTERMITTENT SOFT PRESSURES. PULSES PALPABLE, FAINT IN BLE AND COOL FEET. TRACE EDEMA. LUNGS: CLEAR UPPER LOBES, DIMINISHED THROUGHOUT. PT VENTED ON ACVC 20/350/65%/10. VENT MANAGED BY RT. PT SATTING 88% FOR SEVERAL HOURS DURING THE SHIFT, ETCO2 18-23, PO2 62.4. SCANT ETT SPUTUM WHILE SUCTIONING. ORAL MUCOUSA HAS CLEARED COMPARED TO PREVIOUS SHIFT. PT TACHYPNEIC IN 30'S. SKIN: NO CHANGES GI: OG IN PLACE, TF RUNNING AT GOAL, NO BM THIS SHIFT. : 525 URINE OUTPUT THIS SHIFT. CLEAR, HAYDEE IN COLOR. POTASSIUM REPLACED WITH 40MEQ PT. BG INCREASING, DR. CHOWDHURY AWARE, PT WAS GIVEN AN ADDITIONAL 10 UNITS OF LANTUS AT MIDNIGHT.
[2022-07-24 05:32] LABS: PCO2 Arterial 40.7 mmHg (35-45); PO2 Arterial 62.4 mmHg (80-100); pH Blood Arterial 7.34 (7.35-7.45)
--- NOTE | 2022-07-24 09:30 | NUR ---
SHIFT ASSESSMENT PT INTUBATED AND SEDATED. ON PROPOFOL @ 25MCG'S. VENT SETTINGS VCA-20/350/65/10 c SATS >90%. PT GIVEN SED VACATION THIS AM, WOULD OPEN EYES BUT NOT FOLLOWING COMMANDS. WILL WIHDRAW FROM NOXIOUS STIMULI. PT PLACED BACK ON SEDATION AFTER APPROXIMATELY 40 MINS DUE TO RR IN THE 40'S-50. IN BL SOFT WRIST RESTRAINTS. HEPARIN INFUSING @ 12U/KG/HR PER PHARMACY, LR INFUSING @ 100ML/HR. TF INFUSING @ GOAL. LARGE LOOSE BM THIS AM. TEMP PROBE GARCIA DRAINING YELLOW URINE, PT AFEBRILE.
--- NOTE | 2022-07-24 18:27 | NUR ---
SHIFT SUMMARY PT REMAINS INTUBATED AND SEDATED. VENT SETTINGS NOW VCA-20/350/50/10 @ SATS >90%. PROPOFOL @ 20MCG'S. HEPARIN CONTINUES @ 12U/KG/HR. PTS GLUCOSE ELEVATED, GLARGINE INCREASED TODAY, NOC DOSE GIVEN @ 1820, MAY INITIATE INSULIN GTT PENDING NIGHT GLUCOSE. GARCIA CATH PATENT, DRAINING YELLOW URINE. TF CHANGED TO VHP, AT 25ML/HR CURRENTLY WITH GOAL OF 35ML/HR. MULTIPLE BM'S TODAY, MODERATE AMNT OF PASTY STOOL. NO OTHER ACUTE CHANGES NOTED.
--- NOTE | 2022-07-24 20:00 | NUR ---
PATIENT REMAINS INTUBATED AND SEDATED WITH PROPOFOL 20 MCG. COUGHING AND REACHING TOWARD ETT WITH STIMULI. BILAT WRIST RESTRAINTS IN PLACE TO PREVENT ACCIDENTAL SELF EXTUBATION. VENT AC VC+ 20, TV 350, PEEP 10, FIO2 50%. OG IN PLACE WITH VITAL HP 25 CC/HR PLAN TO INCREASE RATE TO GOAL RATE OF 35 CC/HR WITH HS MEDICATIONS. HEPARIN DRIP CONTINUES 12 UNITS PER PHARMACY. RIGHT IJ HAVING SLIGHT BLOODY OOZE AT INSERTION SITE.
[2022-07-25 05:03] LABS: Hematocrit 32.8 % (33.0-51.0); Hemoglobin 10.9 g/dL (11.5-16.0)
[2022-07-25 05:23] LABS: Bun/Creatinine Ratio 40.7 (12.0-20.0); Calcium, Blood 7.3 mg/dL (8.5-10.1); Creatinine, Blood 1.23 mg/dL (0.40-1.00); Phosphorus, Blood 1.8 mg/dL (2.5-4.9); Potassium, Blood 3.4 mmol/L (3.5-5.5)
--- NOTE | 2022-07-25 07:17 | NUR ---
SUMMARY PATIENT REMAINS INTUBATED AND SEDATED WITH PROPOFOL 20 MCG. PATIENT RESP UP TO 40'S WITH SLIGHT STIMULI, MOVING BOTH ARMS, BUT NOT FOLLOWING DIRECTIONS. VENT CONTINUES AC VC+ 20, TV 350, PEEP 10, FIO2 50%. OG IN PLACE WITH VITAL HP AT GOAL RATE OF 35 CC/HR. HEPARIN DRIP CONTINUES UNCHANGED T/O NIGHT PER PHARMACY. DOCTOR RAMONA NOTIFIED OF AM LABS AND KPHOS ORDERED WITH NS DUE TO CONTINUED ELEVATED GLUCOSE.
--- NOTE | 2022-07-25 09:52 | NUR ---
SHIFT ASSESSMENT ASSUMED CARE OF PT @ 0700. PT INTUBATED AND SEDATED. VENT SETTINGS AC-20/350/50/10 c SATS >90%. PROPOFOL GTT @ 20MCG'S. HEPARIN GTT @ 12U PER PHARMACY. PT GIVEN SEDATION VACATION THIS AM, UNABLE TO FOLLOW COMMANDS, BUT MOVING ALL EXTREMITIES. RR INCREASED TO 40-50'S AND O2 SATS DECREASED, BACK ON PROPOFOL. OGT c VHP @ GOAL RATE. NO BM SO FAR THIS SHIFT. TEMP PROBE GARCIA DRAINING YELLOW URINE.
--- NOTE | 2022-07-25 18:24 | NUR ---
SHIFT SUMMARY PT REMAINS INTUBATED AND SEDATED, PROPOFOL CONTIUES AT 20MCG'S. LOW DOSE LEVOPHED INITIATED @ 2MCG/MIN c MAP >65. NO NEURO CHANGES NOTED. VENT SETTINGS NOW AC-20/350/35%/ PEEP 8 c SATS >90%. BLOOD GLUCOSE RESPONDING TO INCREASED GLARGINE, NOW BELOW 400. TF CONTINUES AT GOAL, NO BM THIS SHIFT. TEMP PROBE GARCIA PATENT, URINE OUTPUT INCREASING, LIGHT YELLOW URINE, PT AFEBRILE. NO OTHER CHANGES NOTED.
--- NOTE | 2022-07-25 20:57 | NUR ---
PATIENT REMAINS INTUBATED AND SEDATED WITH PROPOFOL 20 MCG. PATIENT OPENS EYES TO SLIGHT STIMULI, MOVING BOTH ARMS, RIGHT MORE THAN LEFT, BUT NOT FOLLOWING ANY DIRECTIONS. WHEN AWAKE RESP UP TO 40 WHEN RESTING UNDISTURBED RESP 26. ETT IN PLACE WITH VENT AC VC+ 20, TV 350, PEEP 8, FIO2 35% HARSH STRONG COUGH WITH SCANT AMT OF CLEAR SECRETIONS. LEVOPHED 2 MCG INFUSING TO KEEP MAP >65. OG IN PLACE WITH VITAL HP AT GOAL RATE OF 35 CC/HR. PATIENTS KAHLIL GIVEN UPDATE VIA TELEPHONE. HE IS SICK AT HOME WITH FLU A.
[2022-07-26 06:29] LABS: BASOPHILS ABSOLUTE AUTO 0.07 K/mm3 (0.00-0.23); BASOPHILS PERCENT AUTO 0 % (0-2); EOSINOPHILS ABSOLUTE AUTO 0.02 K/mm3 (0.00-0.68); EOSINOPHILS PERCENT AUTO 0 % (0-6); Hematocrit 33.8 % (33.0-51.0); Hemoglobin 11.5 g/dL (11.5-16.0); IMMATURE GRAN ABSOLUTE AUTO 0.92 K/mm3 (0.00-0.10); IMMATURE GRAN PERCENT AUTO 4 % (0-1); LYMPHOCYTES ABSOLUTE AUTO 2.03 K/mm3 (0.84-5.20); LYMPHOCYTES PERCENT AUTO 10 % (21-46); MONOCYTES ABSOLUTE AUTO 1.28 K/mm3 (0.16-1.47); MONOCYTES PERCENT AUTO 6 % (4-13); Mean Corpuscular HGB 29.4 pg (26.0-34.0); Mean Corpuscular Volume 86 fL (80-100); NEUTROPHILS ABSOLUTE AUTO 16.95 K/mm3 (1.96-9.15); NEUTROPHILS PERCENT AUTO 80 % (41-73); NRBC ABSOLUTE 0.03 K/mm3 (0.00-0.02); NRBC Auto 0.1 /100 WBC (0.0-0.2); Platelet Count 217 K/mm3 (150-400); RDW Coefficient Variation 13.8 % (11.7-14.2); RDW Standard Deviation 43.1 fL (35.1-46.3); Red Blood Cell Count 3.91 M/mm3 (3.80-5.20); White Blood Cell Count 21.27 K/mm3 (4.00-11.30)
--- NOTE | 2022-07-26 06:30 | NUR ---
PATIENT REMAINS INTUBATED AND SEDATED. PROPOFOL TITRATED UP TO 25 MCG DUE TO INCREASED RESP RATE AND COUGHING. LEVOPHED 4MCG TITRATED NEEDED FOR HYPOTENSION. OG REMAINS IN PLACE WITH VITAL HP AT GOAL RATE OF 35 CC/HR.
[2022-07-26 06:42] LABS: Mean Platelet Volume 13.2 fL (9.1-12.4)
[2022-07-26 06:44] LABS: Albumin, Blood 1.8 g/dL (3.4-5.0); Anion Gap 11 mmol/L (6-16); Blood Urea Nitrogen 57 mg/dL (8-24); Bun/Creatinine Ratio 42.2 (12.0-20.0); CO2, Blood 26 mmol/L (21-32); Calcium, Blood 7.1 mg/dL (8.5-10.1); Chloride, Blood 103 mmol/L (98-108); Creatinine, Blood 1.35 mg/dL (0.40-1.00); Glomerular Filtration Rate 42 (60-); Glucose, Blood 278 mg/dL (70-99); Phosphorus, Blood 2.4 mg/dL (2.5-4.9); Potassium, Blood 3.7 mmol/L (3.5-5.5); Sodium, Blood 140 mmol/L (136-145)
--- NOTE | 2022-07-26 13:05 | NUR ---
PT INTUBATED AND SEDATED WITH PROPOFOL. PT COUGHS AND RESP RATE GOES UP TO 48 WITH ANY ACTIVITY OR CARE. PROPOFOL INCREASED THIS AM TO HELP. VERY DIFFICULT TO GET BACK IN SYNC WITH THE VENT. PT WILL FLUTTER EYE'S AND TURN HEAD TOWARDS DIRECTION OF VOICE BUT NOT FOLLOWING ANY DIRECTIONS. MOVES EXTREMITIES SPONT. ON LEVOPHED GTT. GOOD UO. TOLERATING TUBE FEED.
--- NOTE | 2022-07-26 18:13 | NUR ---
SUMMARY PT INTUBATED AND SEDATED. UNABLE TO TITRATE PROPOFOL DOWN WITHOUT PT BECOMING ASYNCHRONOUS WITH THE VENT. UNABLE TO TITRATE LEVOPHED DOWN WELL, EVEN DECREASING BY 1MCG MAP WOULD DROP BELOW 65. TOLERATING TUBE FEED. GOOD UO. NO OTHER CHANGES THIS SHIFT.
--- NOTE | 2022-07-26 21:28 | NUR ---
ASSUMED CARE. SEDATED ON PROPOFOL GTT 30MCQ/HR. WILL MOVE HEAD SLIGHTLY WHEN NAME IS SAID, WILL ATTEMPT TO OPEN EYES, NO SAND TEMPERER, MOVES EXTREMITIES SPONTANOUSLY. GAG, COUGH, SWALLOW INTACT. LS DIM IN BASES, CRACKLES LEFT UPPER. VENT AC/VC 20/350/8/35%. SATS GOOD. SCANT SECRETIONS ON SUCTION. ETT TUBE 24 AT GUMS. ORAL CARE PROVIDED. SINUS ON MONITOR, RATE IN THE 80'S. ABD SOFT, BOTTOM WITH DRY MEPILIX COVERING SMALL SKIN TEAR. CATH CARE PROVIDED, YELLOW URINE. SCD PLACED. EYE CARE SHE HAS SOME EDEMA TO THE LEFT EYE, EDEMA PRESENT IN ALL 4 EXTREMITITES. LEVO 4 MCQ/HR. BP WITH MAP >65. TF INFUSING AT GOAL. BLOOD SUGARS 306, MEDICATED PER EMAR. WILL CONTINUE TO MONTIOR.
[2022-07-27 04:04] LABS: Hemoglobin 11.7 g/dL (11.5-16.0); Mean Corpuscular HGB 29.3 pg (26.0-34.0); Mean Corpuscular HGB Conc 34.4 g/dL (31.5-36.5); Mean Corpuscular Volume 85 fL (80-100); Platelet Count 198 K/mm3 (150-400); RDW Coefficient Variation 13.7 % (11.7-14.2); RDW Standard Deviation 42.5 fL (35.1-46.3); Red Blood Cell Count 3.99 M/mm3 (3.80-5.20); White Blood Cell Count 20.03 K/mm3 (4.00-11.30)
[2022-07-27 04:09] LABS: Mean Platelet Volume 13.7 fL (9.1-12.4)
[2022-07-27 04:27] LABS: Bun/Creatinine Ratio 45.1 (12.0-20.0); Calcium, Blood 7.2 mg/dL (8.5-10.1); Creatinine, Blood 1.42 mg/dL (0.40-1.00); Magnesium, Blood 1.9 mg/dL (1.6-2.4); Phosphorus, Blood 2.9 mg/dL (2.5-4.9)
--- NOTE | 2022-07-27 05:55 | NUR ---
SHIFT SUMMARY: PT REMAINS SEDATED ON PROPOFOL 30MCQ/HR, ATTEMPTED TO DECREASE SEDATION DOWN TO 25MCQ AND SHE STARTED TO FIGHT THE VENT. WILL FLUTTER EYES WHEN SEDATION IS TURNED DOWN, NO CLINICAL TEAM LEAD ONLY SPONTANOUS MOVEMENTS. LS CRACKLES ON THE LEFT, MINIMAL SECRETIONS. VENT SETTINGS REMAIN UNCHANGED 20/350/8/35%. LEVO GTT INCREASED TO 5MCQ TO MAINTAIN MAP >60. REMAINS IN SINUS. BLOOD SUGAR LOWEST WAS 250 WITH INCREASE IN LONG ACTING. TUBE FEED CONTINUES AT 30ML.HR. GARCIA OUTPUT 1500. WILL REPORT OFF. CALL LIGHT IN REACH.
--- NOTE | 2022-07-27 17:38 | NUR ---
SUMMARY PT INTUBATED AND SEDATED WITH PROPOFOL. SEDATION VACATION THIS EVENING. PT ABLE TO OPEN EYE'S TO NAME AND TRACKS WITH EYE'S. STARTED COUGHING QUITE A BIT AFTER AN HOUR AND RESTARTED PROPOFOL. RESTARTED PROPOFOL AT 15MCG AND PT WAS ON 30MCG EARLIER TODAY. PT DOING BETTER TODAY WITH LESS COUGHING SPELLS AND TOLERATING THE VENT BETTER OVERALL. MOVES EXTREMITIES SPONT BUT NOT TO COMMANDS. NO OTHER CHANGES TODAY. UPDATED VIA PHONE TODAY.
[2022-07-28 04:07] LABS: BASOPHILS ABSOLUTE AUTO 0.03 K/mm3 (0.00-0.23); BASOPHILS PERCENT AUTO 0 % (0-2); EOSINOPHILS ABSOLUTE AUTO 0.02 K/mm3 (0.00-0.68); EOSINOPHILS PERCENT AUTO 0 % (0-6); Hematocrit 31.1 % (33.0-51.0); Hemoglobin 10.8 g/dL (11.5-16.0); IMMATURE GRAN ABSOLUTE AUTO 0.76 K/mm3 (0.00-0.10); IMMATURE GRAN PERCENT AUTO 5 % (0-1); LYMPHOCYTES ABSOLUTE AUTO 1.03 K/mm3 (0.84-5.20); LYMPHOCYTES PERCENT AUTO 6 % (21-46); MONOCYTES ABSOLUTE AUTO 1.75 K/mm3 (0.16-1.47); MONOCYTES PERCENT AUTO 10 % (4-13); Mean Corpuscular HGB 29.6 pg (26.0-34.0); Mean Corpuscular HGB Conc 34.7 g/dL (31.5-36.5); Mean Corpuscular Volume 85 fL (80-100); NEUTROPHILS ABSOLUTE AUTO 13.43 K/mm3 (1.96-9.15); NEUTROPHILS PERCENT AUTO 79 % (41-73); Platelet Count 158 K/mm3 (150-400); RDW Coefficient Variation 13.4 % (11.7-14.2); RDW Standard Deviation 41.9 fL (35.1-46.3); Red Blood Cell Count 3.65 M/mm3 (3.80-5.20); White Blood Cell Count 17.02 K/mm3 (4.00-11.30)
[2022-07-28 04:20] LABS: Mean Platelet Volume 13.4 fL (9.1-12.4)
[2022-07-28 04:30] LABS: Albumin, Blood 2.4 g/dL (3.4-5.0); Anion Gap 9 mmol/L (6-16); Blood Urea Nitrogen 69 mg/dL (8-24); Bun/Creatinine Ratio 54.8 (12.0-20.0); CO2, Blood 32 mmol/L (21-32); Calcium, Blood 7.3 mg/dL (8.5-10.1); Chloride, Blood 98 mmol/L (98-108); Creatinine, Blood 1.26 mg/dL (0.40-1.00); Glomerular Filtration Rate 45 (60-); Glucose, Blood 164 mg/dL (70-99); Phosphorus, Blood 3.3 mg/dL (2.5-4.9); Sodium, Blood 139 mmol/L (136-145)
--- NOTE | 2022-07-28 06:05 | NUR ---
SHIFT SUMMARY: PT REMAINS IN BILATERAL SOFT WRIST RESTRAINTS. PT COUGHING A LOT THROUGHOUT THE NIGHT. PROPROFOL INCREASED TO 40 AND LEVO DECREASED TO 2.5. GARCIA CATHERTER INTACT DRAINING TO GRAVITY. TUBE FEEDS AT GOAL RATE 35. VENT SETTINGS ACVC 20 TV 350 PEEP 8 FIO2 30%. SUGARS CHECKED Q6H.
--- NOTE | 2022-07-28 08:00 | NUR ---
Assumed care of pt at 0700. Report received from Marcia FERNANDO. Pt sedated with 20 mcg/kg/min, which is a recent decrease as patient was started on spontaneous breathing trial at 0650. Ventilator settings PS 14/5 and 35% FiO2.
--- NOTE | 2022-07-28 08:00 | NUR ---
Dr Juarez and Dr Tan in room to see patient. Propofol decreased to 10 mcg/kg/min. Pt has been given fentanyl and tylenol as she has been restless and grimacing with occasionally coughing which is dry and harsh.
--- NOTE | 2022-07-28 12:26 | NUR ---
Call placed to Dr Juarez to notify provider of pt's blood sugars and that 60 uniits of long acting insulin was held. Provider ordered for glargine to be stopped. Plan to proceed with high sliding scale regular insulin Q6
--- NOTE | 2022-07-28 15:21 | NUR ---
Pt had episode of arrhythmia with inverted P waves. 12 lead EKG ordered. By the time pt was connected, pt was back to baseline rhtyhm. EKG obtained. Dr Juarez notified. Plan to check troponin at 1000.
--- NOTE | 2022-07-28 18:29 | NUR ---
SUMMARY Neuro/Musc/Psych: RASS -2 to 0. Presently receiving propofol at 10 mcg/kg/min. One dose fentanyl and tylenol given for pain management. Cough and gag intact. Patient has spontaneous movement to all four extremities, but does not move them on instruction. Pt does close eyes, keep eyes closed, and opens eyes as instructed. Pt also opened mouth when instructed to do so during oral care. Total care for all ADLs. Resp: Has been on pressure support for entire shift for open ended breathing trial. PS 14/5, 35% initially, but is currently PS 10/5, 35%. No secretions suctioned from ETT by this RN. RR 22-24. Tidal volume 300-350 mL. Cardiac: SR per monitor. BP stable with 2 mcg/min levophed which was started per Dr Juarez late this afternoon due to MAP 60-65. Albumin given as well. No changes to edema or distal limb perfusion since intial assessment. GI: TF changed from Vital HP to Pivot. No BM this shift, plan to start bowel care. : Good urine output from sykes Skin: Unchanged from intial assessment.
[2022-07-29 04:15] LABS: Albumin, Blood 2.8 g/dL (3.4-5.0); Anion Gap 7 mmol/L (6-16); Blood Urea Nitrogen 70 mg/dL (8-24); Bun/Creatinine Ratio 64.2 (12.0-20.0); CO2, Blood 33 mmol/L (21-32); Calcium, Blood 7.7 mg/dL (8.5-10.1); Chloride, Blood 99 mmol/L (98-108); Creatinine, Blood 1.09 mg/dL (0.40-1.00); Glomerular Filtration Rate 54 (60-); Glucose, Blood 158 mg/dL (70-99); Phosphorus, Blood 3.7 mg/dL (2.5-4.9); Potassium, Blood 4.1 mmol/L (3.5-5.5); Sodium, Blood 139 mmol/L (136-145)
--- NOTE | 2022-07-29 06:29 | NUR ---
SHIFT SUMMARY: PT OPENS EYES SPONTANEOUSLY AND SLIGHTLY TURNS HEAD. FOLLOWS COMMANDS SUCH OPENEING AND CLOSING EYES AND MOUTH BUT DOES NOT MOVE LIMBS ON COMMAND. LEVOPHED OFF SINCE 10PM LAST NIGHT. PROPOFOL AT 10. PRESSURE SUPPORT SETTINGS THROUGHOUT NIGHT, PT TOLERATED WELL BESIDES A FEW COUGHING FITS WHICH SHE RECOVERED FROM. 1 LARGE BM OVERNIGHT. GARCIA CATHETER INTACT, DRAINING TO GRAVITY. TUBE FEEDS AT 35. TROPONIN TRENDING DOWN.
--- NOTE | 2022-07-29 07:15 | NUR ---
Assumed care of pt at 0700. Report received from Marcia FERNANDO. Pt receiving 10 mcg/kg/min propofol for comfort while intubated. RASS 2. Spontaneous eye opening. Follows commands r/t head or facial movement. Does not follow commands r/t limb movement, however spontaneous movement of all limbs has been noted; pt is restless. 8.0 cm ETT at expected location of 24 cm at gums. Vent settings ACVC 20/350/5/30%. Pt is frequently coughing. Cough is harsh and barking. Plan to medicate patient for pain and reassess. ST per monitor, rate 120s. BP stable.
--- NOTE | 2022-07-29 08:00 | NUR ---
Fentanyl given to patient, helped decrease coughing. Call placed to RT Snow to switch patient from volume control to spontaneous to help increase comfort for patient without resedating- goal to extubate patient today. Vent changed to spontaneous mode PS 12/. RR 22-24. Tidal volumes 300-375 mL.
--- NOTE | 2022-07-29 09:30 | NUR ---
Dr Juarez in to see patient. Unlikely to extubate patient today since PS is 12 and TVs are low 300s. Plan to stop propofol, start precedex, and get patient up to chair to optomize breathing.
--- NOTE | 2022-07-29 15:00 | NUR ---
Call placed to Dr Juarez to discuss plan of care. Pt has become hypotensive and is requiring 5 mcg/min levophed to maintain MAP > 65. Additionally, pt is coughing often, appears uncomfortable, and tidal volumes are less than 300 mL. Plan to resedate patient, change vent to ACVC and put pt back into bed.
--- NOTE | 2022-07-29 18:33 | NUR ---
SUMMARY Neuro: Propofol at 20 mcg/kg/min for ventilator tolerance. Cough and gag present. Complete sedation vacation performed for several hours and attempted change to precedex gtt instead. Pt did not achieve comfort while on precedex. Throughout shift, patient has been able to follow directions r/t head or facial movement. Musc: Motion noted to all extremities in times of restlessness but pt does not move extremities when she is instructed to do so. Pt does have purposeful movement to BUE, pulling against restraints in direction of ETT. Resp: On PS 12/5 for approx 8 hours. Periods of coughing that improved with administration of IV fentanyl. Changed to volume control due to poor tidal volumes, less than 300 mL. No secretions. Cardiac: SR to ST per monitor. Currently rate is 84. BP stable with 6 mcg/min. Dr Juarez aware that pt is back on pressors. Leakage from IJ site. GI: Smear BM this shift. TF and flush per orders. : Good urine output. Lasix DC'd due to hypotension issues. Psych/Soc: Updated pt's significant other.
--- NOTE | 2022-07-29 19:01 | NUR ---
TOOK OVER CARE OF PT AT 1900. PT ON 20MCG OF PROPOFOL, 6 OF LEVO, VENTED ON AC/VC 20/350/30%/5
--- NOTE | 2022-07-30 02:45 | NUR ---
TOOK OVER CARE FOR THIS PT FROM ELINA FERNANDO. PT INTUBATED AND SEDATED WITH PROPOFOL - 20. LEVOPHED WILL NEED TO BE TURNED BACK ON, MAP IS CURRENTLY LESS THAN 65. TF INFUSING. BLOOD NOTED TO RIJ DRESSING. WILL CONTINUE TO MONITOR.
--- NOTE | 2022-07-30 05:32 | NUR ---
Shift summary: Neuro: Responds to voice and able to open eyes. PERRL - 4 and sluggish. She has a cough and a gag, able to wiggle right toes to command, and reaches for ETT with only her RUE when suctioned. Poor dentition noted. Cardiac: Levophed drip restarted at 0259 and is currently at 6mcg with MAP>65 now. HR in the low 100s. Afebrile. Edema noted to BLE, BUE and bilateral hands. Resp: Pt intubated on AC/VC 20/350/5/30%. Clear/diminished lungs. Minimal secretions suctioned. GI: OGT infusing continue TF at 35ml/hr. No BM : Temp sykes intact, draining clear yellow urine. Other: RIJ CVC dressing noted to have blood, but none draining beyond dressing. Pt has BUE soft restraints to prevent from extubation. Will pass on above information to oncoming RN.
[2022-07-30 05:39] LABS: BASOPHILS ABSOLUTE AUTO 0.03 K/mm3 (0.00-0.23); BASOPHILS PERCENT AUTO 0 % (0-2); EOSINOPHILS ABSOLUTE AUTO 0.07 K/mm3 (0.00-0.68); EOSINOPHILS PERCENT AUTO 0 % (0-6); Hematocrit 28.7 % (33.0-51.0); Hemoglobin 9.8 g/dL (11.5-16.0); IMMATURE GRAN ABSOLUTE AUTO 0.57 K/mm3 (0.00-0.10); IMMATURE GRAN PERCENT AUTO 4 % (0-1); LYMPHOCYTES ABSOLUTE AUTO 1.18 K/mm3 (0.84-5.20); LYMPHOCYTES PERCENT AUTO 7 % (21-46); MONOCYTES ABSOLUTE AUTO 2.75 K/mm3 (0.16-1.47); MONOCYTES PERCENT AUTO 17 % (4-13); Mean Corpuscular HGB 29.7 pg (26.0-34.0); Mean Corpuscular HGB Conc 34.1 g/dL (31.5-36.5); Mean Corpuscular Volume 87 fL (80-100); NEUTROPHILS ABSOLUTE AUTO 11.89 K/mm3 (1.96-9.15); NEUTROPHILS PERCENT AUTO 72 % (41-73); Platelet Count 185 K/mm3 (150-400); RDW Coefficient Variation 13.7 % (11.7-14.2); RDW Standard Deviation 42.3 fL (35.1-46.3); White Blood Cell Count 16.49 K/mm3 (4.00-11.30)
[2022-07-30 05:46] LABS: Mean Platelet Volume 13.4 fL (9.1-12.4)
[2022-07-30 05:55] LABS: Albumin, Blood 3.5 g/dL (3.4-5.0); Anion Gap 11 mmol/L (6-16); Blood Urea Nitrogen 73 mg/dL (8-24); Bun/Creatinine Ratio 64.6 (12.0-20.0); CO2, Blood 30 mmol/L (21-32); Calcium, Blood 8.1 mg/dL (8.5-10.1); Chloride, Blood 100 mmol/L (98-108); Creatinine, Blood 1.13 mg/dL (0.40-1.00); Glomerular Filtration Rate 51 (60-); Glucose, Blood 146 mg/dL (70-99); Phosphorus, Blood 2.4 mg/dL (2.5-4.9); Potassium, Blood 3.4 mmol/L (3.5-5.5); Sodium, Blood 141 mmol/L (136-145)
--- NOTE | 2022-07-30 08:53 | NUR ---
SHIFT ASSESSMENT PT INTUBATED AND SEDATED. PROPOFOL INFUSING @ 20MCG'S. VENT ADYWHBYQ-ATOL-31/350/30/50 c SATS >90%. PT ALERT IN ROOM, OPENING EYES SPONTANEOUSLY, TRACKING NURSE BUT NOT FOLLOWING ANY COMMANDS. SEDATION ON SB, R ARM PULLING AGAINTS RESTRAINTS TO REACH FOR ETT. LUE PULLS BACK TO NOXIOUS STIMULI. GROSS MOVEMENT OF LE. RR INCREASED TO HIGH 20'S c OCC COUGH. PT PLACED BACK ON SEDATION, WILL GIVE LONGER SED VACATION DURING SBT THIS AM. PTS BP SOFT, ON LEVOPHED @ 6MCG/MIN c MAP >65. OGT c PIVOT 1.5 @ GOAL. GARCIA CATH DRAINING LIGHT YELLOW URINE. WILL MONITOR CLOSELY.
--- NOTE | 2022-07-30 10:46 | NUR ---
UPDATE HOLDING OFF ON EXTUBATION TODAY, PT REQUIRING HIGH PRESSURES. CHANGED TO SPONTANEOUS-31/12 @ 0905. PROPOFOL ON @ 20MCG'S, PT OPENING YES, PULLING AT RESTRAINTS.
--- NOTE | 2022-07-30 18:36 | NUR ---
SHIFT SUMMARY PT REMAINS INTUBATED AND LIGHTLY SEDATED. PROPOFOL CONTINUES @ 20MCG'S. PT ON SPONTANEOUS 14/5 30% FOR MOST OF DAY, TOLERATING WELL, SATS >90%. PT MOVING ALL EXTREMITIES BUT WEAKER ON L THAN RIGHT. LEVOPHED CONTINUES @ 3MCG'S. THIS EVENING DURING ROUND THIS NURSE NOTICED TF ON PTS CHEST AND BED, END OF OGT IN PTS MOUTH. NO SIGNS OF ASPIRATION, LUNG SOUNDS UNCHANGED. NEW OGT INSERTED, C-XRAY CONFIRMED PLACEMENT, TF INFUSING @ GOAL. NO BM THIS SHIFT. TEMP PROBE GARCIA DRAINING YELLOW URINE, AFEBRILE. NO OTHER ACUTE CHANGES.
--- NOTE | 2022-07-30 19:21 | NUR ---
TOOK OVER CARE OF PT AT 1900. PT VENTED ON PRESSURE SUPPORT 14/5 30%, LEVO AT 3, PROPOFOL AT 20.
--- NOTE | 2022-07-30 19:31 | NUR ---
VERIFIED WITH DR. MOTT TO CONTINUE LOVENOX. NOTIFIED OF BLEEDING FROM CENTRAL AND DOWN TREND OF HEMAGLOBIN. PLATLETS 158, NO CHANGE TO HEPARIN AT THIS TIME, CBC ORDERED FOR AM.
[2022-07-31 05:20] LABS: BASOPHILS ABSOLUTE AUTO 0.02 K/mm3 (0.00-0.23); BASOPHILS PERCENT AUTO 0 % (0-2); EOSINOPHILS ABSOLUTE AUTO 0.09 K/mm3 (0.00-0.68); EOSINOPHILS PERCENT AUTO 1 % (0-6); Hemoglobin 9.5 g/dL (11.5-16.0); IMMATURE GRAN ABSOLUTE AUTO 0.32 K/mm3 (0.00-0.10); IMMATURE GRAN PERCENT AUTO 2 % (0-1); LYMPHOCYTES ABSOLUTE AUTO 1.45 K/mm3 (0.84-5.20); LYMPHOCYTES PERCENT AUTO 10 % (21-46); MONOCYTES ABSOLUTE AUTO 1.95 K/mm3 (0.16-1.47); MONOCYTES PERCENT AUTO 14 % (4-13); Mean Corpuscular HGB 29.3 pg (26.0-34.0); Mean Corpuscular HGB Conc 32.8 g/dL (31.5-36.5); Mean Corpuscular Volume 90 fL (80-100); NEUTROPHILS ABSOLUTE AUTO 10.13 K/mm3 (1.96-9.15); NEUTROPHILS PERCENT AUTO 73 % (41-73); Platelet Count 177 K/mm3 (150-400); RDW Standard Deviation 45.2 fL (35.1-46.3); Red Blood Cell Count 3.24 M/mm3 (3.80-5.20); White Blood Cell Count 13.96 K/mm3 (4.00-11.30)
[2022-07-31 05:24] LABS: Mean Platelet Volume 13.7 fL (9.1-12.4)
[2022-07-31 05:33] LABS: Albumin, Blood 3.6 g/dL (3.4-5.0); Albumin/Globulin Ratio 1.4 (0.8-1.8); Bilirubin, Direct 0.3 mg/dL (0.0-0.3); Bilirubin, Indirect 0.5 mg/dL (0.1-0.7); Bilirubin, Total 0.8 mg/dL (0.1-1.0); Bun/Creatinine Ratio 65.6 (12.0-20.0); Calcium, Blood 8.1 mg/dL (8.5-10.1); Creatinine, Blood 0.95 mg/dL (0.40-1.00); Globulin, Blood 2.6 g/dL (2.2-4.0); Phosphorus, Blood 2.7 mg/dL (2.5-4.9); Total Protein, Blood 6.2 g/dL (6.4-8.2)
--- NOTE | 2022-07-31 06:10 | NUR ---
SUMMARY NEURO: HOLIDAY GIVEN. PT WIGGLING RT TOES. LEFT FOOT DROP. PT GRIMACES TO NOXIOUS STIMULI ON UPPER EXTREMETIES. PROPOFOL AT 40. LUNGS: CLEAR THROUGHOUT, SCANT SECRETIONS WITH COUGH. INTUBATED AC/VC 20/350/30%/8 CARDIAC: LEVO NEEDS DEPENDENT ON SEDATION LEVEL. +2 EXTREMETY EDEMA GI: TUBE FEEDING RUNNING AT GOAL : GARCIA IN PLACE
--- NOTE | 2022-07-31 09:41 | NUR ---
SHIFT ASSESSMENT PT INTUBATED AND SEDATED. INITIALLY ON AC:20/350/30/5 c SATS >90% AND PROPOFOL @ 40MCG'S. AT 0900 PT PLACED ON SPO PS OF 14/30%/ PEEP 5 c SATS >90%, PROPOFOL AT 20MCG'S, AND LEVOPHED GTT @ 3MCG/MIN FOR MAP GOAL >65. PT OPENING EYES SPONTANEOUSLY AND TRACKING NURSE, NOT FOLLOWING COMMANDS. R ARM PULLING AT RESTRAINTS, REACHING FOR ETT. LUE AND BLE WITH WEAK GROSS MOVEMENT. TF INFUSING AT GOAL. NO BM THIS SHIFT. GARCIA CATH PATENT, DRAINING TO GRAVITY. WILL MONITOR CLOSELY.
--- NOTE | 2022-07-31 18:13 | NUR ---
SHIFT SUMMARY PT REMAINS INTUBATED AND LIGHTLY SEDATED. SPONTANEOUS PS ON T/O DAY, REMAINS ON, NO CHANGES TO SETTINGS. PROPOFOL CONTINUES @ 20MCG'S. LEVOPHED CURRENTLY ON SB. PT ALERT, FOLLOWING SIMPLE COMMANDS, REMAINS WEAK ON L SIDE AND LOWER EXTREMITIES. CL DRESSING CHANGED X 2 TODAY, CONTINUES TO WEEP. TF CONTINUES @ GOAL. GARCIA CATH DRAINING YELLOW URINE. NO OTHER ACUTE CHANGES THIS SHIFT.
--- NOTE | 2022-07-31 21:12 | NUR ---
ASSUMED CARE. MILDLY SEDATED ON PROPOFOL 20MCQ. ABLE TO OPEN HER EYES TO SOUND, PUPILS REACTIVE. FOLLOWS DIRECTIONS. PURPOSEFUL MOVEMENTS NOTED ON RIGHT SIDE ONLY, NO REACTION ON THE LEFT. BILATERAL PUPIL REACTION. DOES NOT LIKE SUCTION TO BE PERFORMED, FIGHTS IT. LUNG SOUNDS CLEAR, DIM IN BASES. VENT ON SPONTANOUS 14/3 FIO2 30%. TF AT GOAL OF 35. ETT TUBE 24 AT TEETH. VS WNL. MILD REDNESS NOTED UNDER BREAST AND GROIN, CREAM ALREADY APPLIED. REDNESS TO COCCYX, FOAM DRESSING IN PLACE. SMALL STAGE 1 ALMOST 2 PRESSURE ULCER NOTED ON LEFT FOOT MEDIAL SIDE OF GREAT TOE. REPOSITIONED, MEDS GIVEN. CATH CARE PERFORMED.
[2022-08-01 03:52] LABS: BASOPHILS ABSOLUTE AUTO 0.01 K/mm3 (0.00-0.23); BASOPHILS PERCENT AUTO 0 % (0-2); EOSINOPHILS ABSOLUTE AUTO 0.08 K/mm3 (0.00-0.68); EOSINOPHILS PERCENT AUTO 1 % (0-6); IMMATURE GRAN ABSOLUTE AUTO 0.18 K/mm3 (0.00-0.10); IMMATURE GRAN PERCENT AUTO 2 % (0-1); LYMPHOCYTES ABSOLUTE AUTO 1.21 K/mm3 (0.84-5.20); LYMPHOCYTES PERCENT AUTO 14 % (21-46); MONOCYTES ABSOLUTE AUTO 1.01 K/mm3 (0.16-1.47); MONOCYTES PERCENT AUTO 11 % (4-13); Mean Corpuscular HGB 29.9 pg (26.0-34.0); Mean Corpuscular HGB Conc 33.3 g/dL (31.5-36.5); Mean Corpuscular Volume 90 fL (80-100); NEUTROPHILS ABSOLUTE AUTO 6.49 K/mm3 (1.96-9.15); NEUTROPHILS PERCENT AUTO 72 % (41-73); Platelet Count 141 K/mm3 (150-400); RDW Standard Deviation 45.7 fL (35.1-46.3); Red Blood Cell Count 3.01 M/mm3 (3.80-5.20); White Blood Cell Count 8.98 K/mm3 (4.00-11.30)
[2022-08-01 04:24] LABS: Albumin, Blood 3.1 g/dL (3.4-5.0); Anion Gap 7 mmol/L (6-16); Blood Urea Nitrogen 59 mg/dL (8-24); CO2, Blood 30 mmol/L (21-32); Calcium, Blood 7.9 mg/dL (8.5-10.1); Chloride, Blood 105 mmol/L (98-108); Creatinine, Blood 0.82 mg/dL (0.40-1.00); Glomerular Filtration Rate 75 (60-); Glucose, Blood 141 mg/dL (70-99); Phosphorus, Blood 2.6 mg/dL (2.5-4.9); Potassium, Blood 4.2 mmol/L (3.5-5.5); Sodium, Blood 142 mmol/L (136-145)
--- NOTE | 2022-08-01 06:24 | NUR ---
SHIFT SUMMARY: MILD SEDATION WITH PROPOFOL 20MCQ. PT WILL OPEN HER EYES, TRACK, AND FOLLOW SIMPLE COMMANDS. PURPOSEFUL MOVEMENTS NOTED MOSTLY ON THE RIGHT. LEFT IS VERY WEAK, MORE LIKE TWITCHES, PUPILS REACT. LS DIM IN BASES BUT OCCATIONALLY WILL HAVE EXP WHEEZES. HAS REMAINED ON SPONTANOUS VENT SETTINGS ALL NIGHT 14/5/30%. ALL VITALS HAVE BEEN WNL. CENTRAL LINE CONTINUES TO LEAK BLOOD FROM SITE, HAD TO CHANGE DRESSING TWICE THIS SHIFT. VERY LITTLE SUCTION HAS BEEN NEEDED, PATIENT DOES HAVE OCCATIONAL COUGH WIHT MINIMAL WHITE SECRETIONS. GARCIA REMAINED PATENT. NO OTHER CHANGES TO NOTE.
--- NOTE | 2022-08-01 08:00 | NUR ---
ASSUMED CARE PT IS ALERT AND ORIENTED TO SELF/SITUATION W/ PROPOFOL ON SB. INTUBATED 14/5/30% SPONTANEOUS. PT FOLLOWS COMMANDS AND COMMUNICATES THROUGH NODDING/SHAKING HEAD. LEFT SIDE HAS BARELY PERCEPTIBLE MOVEMENT. RIGHT SIDE MOVES APPROPRIATELY.
--- NOTE | 2022-08-01 17:06 | NUR ---
SHIFT SUMMARY PT IS ALERT AND ORIENTED TO PLACE/SITUATION. ABLE TO COMMUNICATE WITH NOD/SHAKING HEAD. INTUBATED W/ VENT SETTINGS ON SPONTANEOUS 12/5/30%. ETT AT 25CM LIPS/NARES AND 8.0. PT IS ABLE TO OBEY COMMANDS/SQUEEZE/MOVE RIGHT HAND; LEFT HAND ONLY SOME TWITCHING. IJ CENTRAL LINE DRESSING NEEDED TO BE CHANGED TWICE TODAY D/T OOZING, DR JJ AWARE PER OFFGOING RN. LINE STILL DRAWS AND FLUSHES. PT HAS CLEAR LUNG SOUNDS. PROPOFOL HAS BEEN ON SB ALL DAY, EXCEPT FOR DURING TRIP TO CT.
[2022-08-02 05:39] LABS: BASOPHILS ABSOLUTE AUTO 0.03 K/mm3 (0.00-0.23); BASOPHILS PERCENT AUTO 0 % (0-2); EOSINOPHILS ABSOLUTE AUTO 0.13 K/mm3 (0.00-0.68); EOSINOPHILS PERCENT AUTO 1 % (0-6); Hematocrit 28.1 % (33.0-51.0); Hemoglobin 9.2 g/dL (11.5-16.0); IMMATURE GRAN ABSOLUTE AUTO 0.15 K/mm3 (0.00-0.10); IMMATURE GRAN PERCENT AUTO 1 % (0-1); LYMPHOCYTES ABSOLUTE AUTO 1.99 K/mm3 (0.84-5.20); LYMPHOCYTES PERCENT AUTO 17 % (21-46); MONOCYTES ABSOLUTE AUTO 1.05 K/mm3 (0.16-1.47); MONOCYTES PERCENT AUTO 9 % (4-13); Mean Corpuscular HGB 29.8 pg (26.0-34.0); Mean Corpuscular HGB Conc 32.7 g/dL (31.5-36.5); Mean Corpuscular Volume 91 fL (80-100); Mean Platelet Volume 12.8 fL (9.1-12.4); NEUTROPHILS ABSOLUTE AUTO 8.73 K/mm3 (1.96-9.15); NEUTROPHILS PERCENT AUTO 72 % (41-73); Platelet Count 154 K/mm3 (150-400); RDW Coefficient Variation 13.7 % (11.7-14.2); RDW Standard Deviation 45.1 fL (35.1-46.3); Red Blood Cell Count 3.09 M/mm3 (3.80-5.20); White Blood Cell Count 12.08 K/mm3 (4.00-11.30)
--- NOTE | 2022-08-02 06:20 | NUR ---
SHIFT SUMMERY PT HAS MAINTAINED ON SPONTANEOUS MODE ON THE VENT THROUGHOUT THE NIGHT. SHE HS BEEN SR ON THE MONITOR, HYPERTENSIVE AT TIMES BUT SELF RESOLVED W/OUT INTERVENTION. HER CVL HAS OOZED BLOOD THROUGHOUT THE NIGHT AND THE DRESSING HAS HAD TO BE CHANGED MULTIPLE TIMES. SHE HAD A SMALL BM. SHE HAS BEEN AFEBRILE. SHE IS ALERT, ABLE TO MOVE RIGHT SIDE WELL BUT LEFT SIDE HAS NOTED DEFICITS-MD AWARE. CT DONE YESTERDAY AND A REPEAT ORDERED FOR TODAY. GARCIA CATH IS INTACT AND DRAINING YELLOW URINE. PT IS COVID +. NO ACUTE CHANGES OVERNIGHT.
[2022-08-02 06:27] LABS: Anion Gap 8 mmol/L (6-16); Blood Urea Nitrogen 58 mg/dL (8-24); Bun/Creatinine Ratio 79.1 (12.0-20.0); CO2, Blood 27 mmol/L (21-32); Calcium, Blood 8.2 mg/dL (8.5-10.1); Chloride, Blood 107 mmol/L (98-108); Creatinine, Blood 0.73 mg/dL (0.40-1.00); Glomerular Filtration Rate 87 (60-); Glucose, Blood 237 mg/dL (70-99); Phosphorus, Blood 1.9 mg/dL (2.5-4.9); Sodium, Blood 142 mmol/L (136-145)
--- NOTE | 2022-08-02 07:15 | NUR ---
Assumed care of pt at 0715 Pt nodding appropriately and following commands with right hand. Moves left leg independently. Left side is flaccid, CT head completed 08/[address] head ordered and scheduled for 1000 today. Pt is intubated and on a ventilator, settings have been spontaneous since yesterday, pt tolerating well. Sinus Rhythm, BP WNL. Tube feedings infusing at goal through OGT. Yates to gravity draining clear yellow urine. Central line to right neck SL, all ports flush well but is oozing and has been for several days. Will attempt to secure additional IV access today and D/C central line. No family at bedside. RN to continue to follow
--- NOTE | 2022-08-02 11:56 | NUR ---
Extubated at 1149 Pt has been on spontaneous vent settings for 24 hours, tolerating well. Order recieved to extubate. RT and RN at bedside. Tube feeding off at 1130. Mouth care done including suctioning. Pt extubated to 4L NC, strong cough noted after extubation. Education done with pt re: resting voice and nothing by mouth immediately following extubation. Restraints left in place as pt grabbing for central line in right neck. Will continue to assess for pt safety and appropriate removal of restraints. RN to continue to monitor
--- NOTE | 2022-08-02 18:11 | NUR ---
END OF SHIFT SUMMARY NEURO: FOLLOWS COMMANDS WITH RIGHT SIDE, LEFT SIDE WITHDRAWL TO PAINFUL STIMULI WITH SHOULDER, GRIMACE WITH PAINFUL STIMULI LLE. CT HEAD COMPLETED AT 1000. CARDIAC: SINUS RHYTHM/SINUS TACH. SBP 130-160. RESP: EXTUBATED TO 4L NC. TITRATED O2 TO OFF, O2 SAT REMAINS >92%. LUNGS CLEAR AND DIMINSHED. STRONG COUGH. GI: OGT PULLED WITH EXTUBATION. TF STOPPED. PT IS NPO, WILL NEED ST SWALLOW EVAL 08/03. BS HYPERACTIVE, BM X2 : GARCIA DRAINING CLEAR YELLOW URINE. UO 950 TOTAL. SKIN: RIGHT NECK WITH DRESSING DUE TO OOZING FROM CENTRAL LINE SITE. NO OTHER CHANGES TO SKIN THIS SHIFT. IV: POWERGLIDE PLACED IN LEFT UPPER ARM, CENTRAL LINE D/C'D. PT TOLERATED WELL. PG IS SL, FLUSHES WELL. F NO FAMILY AT BEDSIDE THIS SHIFT. RESTRAINTS D/C'D AT 1800 AFTER CENTRAL LINE D/C'D. CARE PLAN UPDATED AND ORDER D/C'D.
--- NOTE | 2022-08-03 04:57 | NUR ---
END OF SHIFT REPORT NEURO: NIHSS SCORE 20. PT ALERT AND ORIENTED TO SELF AND PLACE. MAJORITY OF SPEECH IS GARBLED AND INCOMPREHENSIBLE. LOWER FACE PARALYSIS, LEFT SIDE FACIAL DROOP WHEN SMILING. FAILED NURSE BEDSIDE SWALLOW EVAL. RUE AND RLE HAVE FULL MOVEMENT, BUT REMAINS WEAK, MOVES ONLY AGAINST GRAVITY. LUE AND LLE TWITCH TO NOXIOUS STIMULI WITH FACIAL GRIMACE. ONE INSTANCE THIS MORNING OF LEFT ARM MOVING AGAINST GRAVITY. PUPILS 4MM AND PERRLA. PT FOLLOWS COMMANDS. RESPIRATORY: 3 L NC SATTING >95%. MULTIPLE EPISODES OF APNEA OVERNIGHT, DROPPING SATS TO MID 70s. RESOLVED WITH NC PLACEMENT. BREATH SOUNDS DIMINISHED THROUGH OUT, UNABLE TO APPRECIATE ADVENTITIOUS SOUNDS. CARDIAC: NSR. HR 60s-70s. BP AVERAGING 140s/70s WITH MAPS >65. CAP REFILL < 3 SECS. GENERALIZED EDEMA +1. GI/: INCONTINENT. NORMOACTIVE BOWEL SOUNDS. MILD DISTENTION. ONE SOFT BROWN BOWEL MOVEMENT OVERNIGHT. GARCIA IN PLACE, SECURE AND DRAINING TO GRAVITY WITH NO DEPENDENT LOOPS. PUTTING OUT ADEQUATE AMOUNTS OF CLEAR YELLOW URINE. MUSCULOSKELETAL: RUE AND RLE WEAK BUT FOLLOWS COMMANDS. LUE AND LLE TWITCH TO NOXIOUS STIMULI. INTEGUMENTARY: COCCYX CLEAR. DIFFUSE BRUISING AND SCABS ACROSS LENGTH OF BODY.
[2022-08-03 05:09] LABS: BASOPHILS ABSOLUTE AUTO 0.03 K/mm3 (0.00-0.23); BASOPHILS PERCENT AUTO 0 % (0-2); EOSINOPHILS ABSOLUTE AUTO 0.21 K/mm3 (0.00-0.68); EOSINOPHILS PERCENT AUTO 2 % (0-6); Hematocrit 27.1 % (33.0-51.0); Hemoglobin 8.9 g/dL (11.5-16.0); IMMATURE GRAN PERCENT AUTO 2 % (0-1); LYMPHOCYTES ABSOLUTE AUTO 1.99 K/mm3 (0.84-5.20); LYMPHOCYTES PERCENT AUTO 15 % (21-46); MONOCYTES PERCENT AUTO 8 % (4-13); Mean Corpuscular HGB 30.1 pg (26.0-34.0); Mean Corpuscular HGB Conc 32.8 g/dL (31.5-36.5); Mean Corpuscular Volume 92 fL (80-100); NEUTROPHILS ABSOLUTE AUTO 9.94 K/mm3 (1.96-9.15); NEUTROPHILS PERCENT AUTO 74 % (41-73); Platelet Count 161 K/mm3 (150-400); RDW Coefficient Variation 13.5 % (11.7-14.2); RDW Standard Deviation 44.8 fL (35.1-46.3); Red Blood Cell Count 2.96 M/mm3 (3.80-5.20); White Blood Cell Count 13.37 K/mm3 (4.00-11.30)
[2022-08-03 05:21] LABS: Albumin, Blood 2.9 g/dL (3.4-5.0); Anion Gap 5 mmol/L (6-16); Blood Urea Nitrogen 42 mg/dL (8-24); Bun/Creatinine Ratio 70.6 (12.0-20.0); CO2, Blood 28 mmol/L (21-32); Calcium, Blood 8.2 mg/dL (8.5-10.1); Chloride, Blood 108 mmol/L (98-108); Glomerular Filtration Rate 95 (60-); Glucose, Blood 110 mg/dL (70-99); Phosphorus, Blood 2.9 mg/dL (2.5-4.9); Potassium, Blood 4.2 mmol/L (3.5-5.5); Sodium, Blood 141 mmol/L (136-145)
[2022-08-03 05:54] LABS: Mean Platelet Volume 13.1 fL (9.1-12.4)
--- NOTE | 2022-08-03 07:16 | NUR ---
Assumed care of pt at 0715. Bedside report recieved from offgoing RN. Neurologically improving, more movement of left side and can state name and town. Cardiac stable, SR, BP WNL. O2 at 3L overnight due to occasional desaturations. NPO, failed RN swallow, needs ST swallow eval. Yates draining clear yellow urine. PG to left upper arm-SL. Old central line site oozing but stable, Skin otherwise unchanged. RN to continue to monitor.
[2022-08-03 13:05] LABS: CHOL/HDL RATIO 5.7; Cholesterol 136 mg/dL (50-200); HDL Cholesterol 24 mg/dL (>39); LDL/HDL RATIO 3.4; Low Density Lipoprotein Chol 82 mg/dL (0-110); Triglycerides 148 mg/dL (30-160); Very Low Density Lipoprot Chol 29 mg/dL (6-32)
--- NOTE | 2022-08-03 14:30 | NUR ---
PT TO MRI STUDY IS EXPECTED TO BE APPROX 90 MINUTES. TRANSPORTED VIA GURNEY BY [employer]. 10MG IV VALIUM GIVEN PRIOR TO MRI.
--- NOTE | 2022-08-03 18:01 | NUR ---
END OF SHIFT SUMMARY NEURO: PT MENTATION IMPROVING THROUGHOUT SHIFT, USING LONGER PHRASES WHEN ANSWERING QUESTIONS. STILL WITHDRAWN AT TIMES AND DOES NOT ANSWER QUESTIONS AT TIMES. LEFT ARM AND LEG WITH SLIGHT MOVEMENT NOTED ON COMMAND. MRI HEAD ATTEMPTED TODAY, ONLY 1 OF 3 STUDIES COMPLETED DUE TO PT MOVEMENT DESPITE PREMEDICATION WITH 10ML IV VALIUM. CARDIAC: SINUS RHYTHM, BP WNL. ECHO COMPLETED INCLUDING BUBBLE STUDY. RESP: 3L NC, O2 SAT > 92%. LUNGS CLEAR AND DIMINISHED, STRONG NON-PRODUCTIVE COUGH. NOT COOPERATIVE WITH ORAL CARE. GI: NPO. FAILED ST EVAL TODAY. DR. VIEIRA TO ASSESS FOR NUTRITION OPTIONS. DISCUSSED POSSIBLE NEED FOR ARTIFICIAL FEEDING IN THE FUTURE, WILL THINK ABOUT IT AND LET THE MD KNOW. BS NORMOACTIVE, NO BM THIS SHIFT. FSBG WITH NO COVERAGE NEEDED. : GARCIA TO GRAVITY DRAINING YELLOW URINE. SKIN: UNCHANGED. DRESSING TO RIGHT NECK CENTRAL LINE SITE WITHOUT OOZING, DRESSING LEFT INTACT. IV: POWERGLIDE TO LEFT UPPPER ARM. SALINE LOCKED. UPDATED ON CURRENT CONDITION AND PLAN OF CARE.
[2022-08-04 04:38] LABS: BASOPHILS ABSOLUTE AUTO 0.03 K/mm3 (0.00-0.23); BASOPHILS PERCENT AUTO 0 % (0-2); EOSINOPHILS ABSOLUTE AUTO 0.26 K/mm3 (0.00-0.68); EOSINOPHILS PERCENT AUTO 3 % (0-6); Hematocrit 25.7 % (33.0-51.0); Hemoglobin 8.3 g/dL (11.5-16.0); IMMATURE GRAN ABSOLUTE AUTO 0.09 K/mm3 (0.00-0.10); IMMATURE GRAN PERCENT AUTO 1 % (0-1); LYMPHOCYTES ABSOLUTE AUTO 1.24 K/mm3 (0.84-5.20); LYMPHOCYTES PERCENT AUTO 12 % (21-46); MONOCYTES ABSOLUTE AUTO 0.73 K/mm3 (0.16-1.47); MONOCYTES PERCENT AUTO 7 % (4-13); Mean Corpuscular HGB 30.3 pg (26.0-34.0); Mean Corpuscular HGB Conc 32.3 g/dL (31.5-36.5); Mean Corpuscular Volume 94 fL (80-100); Mean Platelet Volume 12.9 fL (9.1-12.4); NEUTROPHILS ABSOLUTE AUTO 7.77 K/mm3 (1.96-9.15); NEUTROPHILS PERCENT AUTO 77 % (41-73); Platelet Count 159 K/mm3 (150-400); RDW Coefficient Variation 13.5 % (11.7-14.2); RDW Standard Deviation 45.5 fL (35.1-46.3); Red Blood Cell Count 2.74 M/mm3 (3.80-5.20); White Blood Cell Count 10.12 K/mm3 (4.00-11.30)
[2022-08-04 05:15] LABS: Magnesium, Blood 2.3 mg/dL (1.6-2.4)
[2022-08-04 05:16] LABS: Albumin, Blood 2.6 g/dL (3.4-5.0); Anion Gap 4 mmol/L (6-16); Blood Urea Nitrogen 36 mg/dL (8-24); Bun/Creatinine Ratio 56.5 (12.0-20.0); CO2, Blood 28 mmol/L (21-32); Calcium, Blood 7.9 mg/dL (8.5-10.1); Chloride, Blood 110 mmol/L (98-108); Creatinine, Blood 0.64 mg/dL (0.40-1.00); Glomerular Filtration Rate 93 (60-); Glucose, Blood 118 mg/dL (70-99); Phosphorus, Blood 2.7 mg/dL (2.5-4.9); Potassium, Blood 4.8 mmol/L (3.5-5.5); Sodium, Blood 142 mmol/L (136-145)
--- NOTE | 2022-08-04 05:25 | NUR ---
SHIFT SUMMARY: SAMUEL WILL OPEN HER EYES BUT SHE DOES NOT RESPOND VERBALLY THIS SHIFT. SHE DOES MAKE SOME MOANING NOISES WHEN BEING REPOSITIONED. SHE FOUGHT HAVING ORAL CARE PERFORMED. GROSS MOTOR MOVEMENTS ON THE RIGHT ONLY. LEFT FLACCID. DOES SWALLOW BUT NOT WELL. DOES FOLLOW SIMPLE COMMANDS. LS CLEAR WITH DIM BASES, OCCATIONAL NON-PRODUCTIVE COUGH. O2 NC TURNED DOWN TO 2L. ATTEMPTED TO REMOVE O2 BUT ONCE ALSEEP SHE DESATED TO 86. DRSG TO RIGHT IJ STILL INTACT NO SIGNS OF BLEEDING. LEFT FOOT DROP AND DID NOT RESPOND TO STIMULI. NO OTHER ACUTE CHANGES TO NOTE.
--- NOTE | 2022-08-04 14:36 | NUR ---
Spiritual Care Visit. Pt. is awake in a recliner, and is nominally reponsive. Pt. speaks with short word sentences. Listen carefully and empathetically. Pt. displayed evidence of being groggy, and somnilent. Prayed with Pt. will continue to be available.
--- NOTE | 2022-08-04 16:35 | NUR ---
SHIFT SUMMARY NEURO: ALERT AND ORIENTED X2. FOLLOWS COMMANDS. LEFT UPPER ARM WITHDRAWS TO PAIN, LEFT LEG PT GRIMACES WITH PAINFUL STIMULI BUT DOES NOT WITHDRAW. CARDIAC: SR, BP WNL. C/O CHEST PAIN AT 1215, DR. HSIEH NOTIFIED, EKG ORDERED AND COMPLETED, NITRO SL GIVEN X1. SBP DECREASED TO 88 AFTER 1ST NITRO, SECOND DOSE HELD. PT STATED PAIN IMPROVED AFTER NITRO AND FELL ASLEEP 15 MIN LATER. EKG REPORTED TO MD, PT DENIES CP FOR THE REMAINDER OF THE SHIFT. TROPONIN ORDER PLACED PER MD. RESP: 2L NC, LUNGS CLEAR AND DIMINSHED IN THE BASES. STRONG NON-PRODUCTIVE COUGH. GI: NPO, FAILED SECOND ST SWALLOW EVAL TODAY, MD NOTIFIED. PT'S WAS AGREEABLE TO PEG TUBE PLACEMENT BUT THERE WAS SOME QUESTION TO THE PT'S OPINION. DISCUSSED OPTIONS WITH THE PT, SHE SAYS "I GUESS" WHEN ASKED IF SHE WAS OK WITH A PEG TUBE. MD NOTIFIED. BLOOD GLUCOSE < 150, NO COVERAGE REQUIRED. : GARCIA TO GRAVITY DRAINING CLEAR YELLOW URINE. SKIN: NO SKIN CHANGES THIS SHIFT. STILL WITH SCATTERED BRUISING AND SCABBING. HAS BANDAID TO RIGHT NECK (OLD CENTRAL LINE ENTRANCE). NO BLEEDING NOTED. NEW DRESSING PLACED ON COCCYX FOR PREVENTION OF SKIN BREAKDOWN. BATH GIVEN THIS AM. TURNED/REPOSITIONED IN CHAIR EVERY 2 HOURS TO MAINTAIN SKIN INTEGRITY AND FOR COMFORT. IV: POWERGLIDE TO LEFT UPPER ARM. FLUSHES WELL. DR. HSIEH UPDATED PT'S ON CURRENT STATUS AND PLAN OF CARE. PT DOWNGRADED TO MEDICAL STATUS WITH TELE BUT IN LIGHT OF RECENT CHEST PAIN, WILL BE GOING TO PCU. REPORT CALLED TO ABDULLAHI HENRY. PT TO TRANSFER TO PCU 7.
--- NOTE | 2022-08-04 18:50 | NUR ---
PT ARRIVED TO UNIT @1737 VIA CHAIR. BOOK REPAIRER AT BEDSIDE, REPORT RECEIVED EARLIER FROM ABDULLAHI HUBBARD. PT HOOKED UP TO TELEMETRY. VSS. ON RA. DENIES CP. ORIENTED X4. FLAT AFFECT BUT COOPERATIVE. DELAYED RESPONSES. L SIDED DEFICIT. WILL PASS ON TO NOC RN
--- NOTE | 2022-08-05 06:19 | NUR ---
PT SOLMNOLENT ENTIRE SHIFT, DELAYED RESPONSES, ANSWERES APPROPRIATLEY AT TIMES, IT IS HOWEVER CHALLENGING TO GET CONSISTENT ANSWERS, C/O CP AT TIMES, DR GREGG AWARE AT BEDSIDE, TROP TRENDING DOWN, 12 LEAD REVIEWED, PT INCONSISTENT WITH DESCRIPTION IF SHE WILL GIVE ONE AT ALL, VSS THROUGHOUT SHIFT, PT APPEARS CONFORTABLE, NSR ON TELE, GOOD UO, NPO UNTIL EVAL BY GEN SURG FOR PEG PLACEMENT, CONSULT CALLED TO ANSWERING SERVICE, CALL LIGHT IN REACH
--- NOTE | 2022-08-05 07:21 | NUR ---
PATIENT REFUSED CBGS. RN NOTIFIED.
--- NOTE | 2022-08-06 04:01 | NUR ---
NO ISSUES OVERNIGHT, NO PRNS, VSS, CALL LIGHT IN REACH
[2022-08-06 06:11] LABS: BASOPHILS ABSOLUTE AUTO 0.04 K/mm3 (0.00-0.23); BASOPHILS PERCENT AUTO 0 % (0-2); EOSINOPHILS ABSOLUTE AUTO 0.11 K/mm3 (0.00-0.68); EOSINOPHILS PERCENT AUTO 1 % (0-6); Hematocrit 22.8 % (33.0-51.0); Hemoglobin 7.2 g/dL (11.5-16.0); IMMATURE GRAN ABSOLUTE AUTO 0.11 K/mm3 (0.00-0.10); IMMATURE GRAN PERCENT AUTO 1 % (0-1); LYMPHOCYTES ABSOLUTE AUTO 1.18 K/mm3 (0.84-5.20); LYMPHOCYTES PERCENT AUTO 10 % (21-46); MONOCYTES ABSOLUTE AUTO 1.05 K/mm3 (0.16-1.47); MONOCYTES PERCENT AUTO 9 % (4-13); Mean Corpuscular HGB 30.5 pg (26.0-34.0); Mean Corpuscular HGB Conc 31.6 g/dL (31.5-36.5); Mean Corpuscular Volume 97 fL (80-100); NEUTROPHILS ABSOLUTE AUTO 9.76 K/mm3 (1.96-9.15); NEUTROPHILS PERCENT AUTO 80 % (41-73); Platelet Count 174 K/mm3 (150-400); RDW Coefficient Variation 14.3 % (11.7-14.2); RDW Standard Deviation 46.9 fL (35.1-46.3); Red Blood Cell Count 2.36 M/mm3 (3.80-5.20); White Blood Cell Count 12.25 K/mm3 (4.00-11.30)
[2022-08-06 06:12] LABS: Mean Platelet Volume 13.1 fL (9.1-12.4)
[2022-08-06 06:33] LABS: Bun/Creatinine Ratio 49.9 (12.0-20.0); Calcium, Blood 8.5 mg/dL (8.5-10.1); Creatinine, Blood 0.76 mg/dL (0.40-1.00); Potassium, Blood 4.6 mmol/L (3.5-5.5)
--- NOTE | 2022-08-06 17:30 | NUR ---
SHIFT SUMMARY; ASSUMED CARE AT 0700. A/A/OX3. Q2 REPOSITIONING DURING SHIFT. LEFT ARM WEAKNESS AND WILL NOT FOLLOW INSTRUCTIONS, DOES NOT ANSWER QUESTIONS FOR RN, ALTHOUGH MINIMALLY SPEAKS WITH WHEN VISITING. REFUSES ORAL CARE, MINIMALLY COMPLETED ONCE DURING SHIFT AND PT SHAKES HEAD BACK AND FORTH AND GRITS MOUTH SHUT AND WILL NOT ALLOW SWAB IN MOUTH. REACHES FOR LEFT BED RAIL WITH RIGHT HAND AND MINIMALLY REPOSITONS BODY WHEN THINKING RN ISN'T LOOKING, WHEN ASKED PT TO REPEAT THE MOVEMENT SHAKES HEAD NO. CATH IN PLACE DRAINING STRAW COLORED URINE TO GRAVITY. NPO PER SPEECH DUE TO FAILED SWALLOW STUDY. POSSIBLE PEG TUBE PLACEMENT TOMORROW. LR STARTED AT 75ML/HR PER ORDERS AND CONTINUING TO INFUSE. BRUISING NOTED TO ABDOMEN AND RIGHT SIDE. MEPILEX IN PLACE ON COCCYX FOR PREVENTATIVE. BILATERAL HEEL MEPILEX PLACED TODAY. WILL CONTINUE TO MONITOR AND TREAT UNTIL CHANGE OF SHIFT.
--- NOTE | 2022-08-06 23:30 | NUR ---
CODE/TOD PT BECAME BRADYCARDIC AT 2241, PRIMARY NURSE NOTIFIED. PT UNRESONSIVE AND APNIC, CODE BLUE CALLED AT 2241 FOR RESPIRATORY CODE. PT INTUBATED BY GER[place] RT. PT HR 48, BP 124/73, ATROPINE GIVEN AT [address] GAONA ORDER. 2246 BP 87/46 (MAP 59), HR 79. 2246-KETAMINE [address] GAONA,HR 57,EKG DONE, LEVOPHED ORDERED THROUGH PHARMACY. 2251- BRADYCARDIC 42, WEAK PULSE, EPI GIVEN PER MD. 2252- NO PULSE, CHEST COMPRESSIONS STARTED. 2254- ATROPINE GIVEN PER MD, BP 99/77. 2255- MD NOTIFIED FAMILY AND PT NOW DNR, INTUBATION ONLY. CHEST COMPRESSIONS STOPPED. 2257-HR SR/PVC'S, LEVOPHED STARTED 10 MCG. 2299- AMIO 150 GIVEN. 2301- PT STEMI TO VFIB ARREST PER DR. GAONA. 2304- LEVO 15 MCG, HR 63. 2310- TX TO ICU 06, ETC02-3 AGONAL. 2311-TOD. DR. US NOTIFIED BY THIS RN. FAMILY NOTIFIED BY RIGGING HELPER. NURSING PILOT BOAT OPERATOR AT BEDSIDE.
--- NOTE | 2022-08-06 23:48 | NUR ---
PT ARRIVE TO ICU AT 2311 ATTACHED TO HEART MONITOR, ETCO2, AND VENTILATION. ETCO2 WAS CONSISTENLY 3. DNR ORDER OBTAINED PRIOR TO ARRIVAL TO ICU PER DR. GAONA. CONFIRMED WITH DR. US FOR DNR STATUS. PT ASYSTOLE AND , KAHLIL, NOTIFIED AT [phone].
== END 2022-08-06 23:12 | DRG 870 ==
LOC: ER 06:11 → ICUE 09:42 → ICUW 09:42 → PCU 09:42 → ICUE 10:21 → PCU 08-04 17:38 → ICUE 08-06 23:11
PROVIDERS: Emergency Medicine; Family Medicine; Internal Medicine; Internal Medicine Critical Care Medicine; Student in an Organized Health Care Education/Training Program; ADMIT Internal Medicine
PROC: 5A1955Z Respiratory Ventilation, Greater than 96 Consecutive Hours (ICD-10-PCS; principal; 2022-07-22)
PROC: 0BH17EZ Insertion of Endotracheal Airway into Trachea, Via Natural or Artificial Opening (ICD-10-PCS; 2022-07-22)
PROC: 02HV33Z Insertion of Infusion Device into Superior Vena Cava, Percutaneous Approach (ICD-10-PCS; 2022-07-22)
PROC: B548ZZA Ultrasonography of Superior Vena Cava, Guidance (ICD-10-PCS; 2022-07-22)
PROC: 3E033XZ Introduction of Vasopressor into Peripheral Vein, Percutaneous Approach (ICD-10-PCS; 2022-07-22)
PROC: XW033E5 Introduction of Remdesivir Anti-infective into Peripheral Vein, Percutaneous Approach, New Technology Group 5 (ICD-10-PCS; 2022-07-22)
PROC: 3E03329 Introduction of Other Anti-infective into Peripheral Vein, Percutaneous Approach (ICD-10-PCS; 2022-07-22)
PROC: 5A09357 Assistance with Respiratory Ventilation, Less than 24 Consecutive Hours, Continuous Positive Airway Pressure (ICD-10-PCS; 2022-07-22)
PROC: XW0DXM6 Introduction of Baricitinib into Mouth and Pharynx, External Approach, New Technology Group 6 (ICD-10-PCS; 2022-07-23)
PROC: 3E0333Z Introduction of Anti-inflammatory into Peripheral Vein, Percutaneous Approach (ICD-10-PCS; 2022-07-24)
PROC: 0DH67UZ Insertion of Feeding Device into Stomach, Via Natural or Artificial Opening (ICD-10-PCS; 2022-07-24)
PROC: 5A12012 Performance of Cardiac Output, Single, Manual (ICD-10-PCS; 2022-08-06)
PROC: 5A1935Z Respiratory Ventilation, Less than 24 Consecutive Hours (ICD-10-PCS; 2022-08-06)
PROC: 0BH17EZ Insertion of Endotracheal Airway into Trachea, Via Natural or Artificial Opening (ICD-10-PCS; 2022-08-06)
DX: A41.89 Other specified sepsis (principal); G92.8 Other toxic encephalopathy; I21.A1 Myocardial infarction type 2; J12.82 Pneumonia due to coronavirus disease 2019; J96.01 Acute respiratory failure with hypoxia; U07.1 COVID-19; R65.21 Severe sepsis with septic shock; J15.211 Pneumonia due to Methicillin susceptible Staphylococcus aureus; I26.99 Other pulmonary embolism without acute cor pulmonale; I63.9 Cerebral infarction, unspecified; I50.20 Unspecified systolic (congestive) heart failure; I13.0 Hypertensive heart and chronic kidney disease with heart failure and stage 1 through stage 4 chronic kidney disease, or unspecified chronic kidney disease; N17.9 Acute kidney failure, unspecified; G93.1 Anoxic brain damage, not elsewhere classified; G81.94 Hemiplegia, unspecified affecting left nondominant side; A41.01 Sepsis due to Methicillin susceptible Staphylococcus aureus; Z66 Do not resuscitate; Z51.5 Encounter for palliative care; M54.9 Dorsalgia, unspecified; M54.2 Cervicalgia; G89.29 Other chronic pain; M51.9 Unspecified thoracic, thoracolumbar and lumbosacral intervertebral disc disorder; E11.22 Type 2 diabetes mellitus with diabetic chronic kidney disease; I25.10 Atherosclerotic heart disease of native coronary artery without angina pectoris; E11.65 Type 2 diabetes mellitus with hyperglycemia; D63.1 Anemia in chronic kidney disease; N18.9 Chronic kidney disease, unspecified; E87.6 Hypokalemia; E83.39 Other disorders of phosphorus metabolism; R00.1 Bradycardia, unspecified; E03.8 Other specified hypothyroidism; I69.391 Dysphagia following cerebral infarction; E78.00 Pure hypercholesterolemia, unspecified; Z74.09 Other reduced mobility; Z98.890 Other specified postprocedural states; Z88.0 Allergy status to penicillin; Z88.1 Allergy status to other antibiotic agents; Z88.2 Allergy status to sulfonamides; Z88.8 Allergy status to other drugs, medicaments and biological substances; Z79.899 Other long term (current) drug therapy; Z79.52 Long term (current) use of systemic steroids; Z79.891 Long term (current) use of opiate analgesic
CPT/HCPCS: 0241U; 31500; 36415; 36556; 36600; 51702; 70450; 70551; 71045; 71260; 73522; 80048; 80053; 80061; 80069; 81001; 82248; 82330; 82803; 82947; 83036; 83605; 83735; 83880; 84100; 84484; 85014; 85018; 85025; 85027; 85520; 85610; 85730; 87040; 87070; 87077; 87086; 87147; 87186; 87205; 92526; 92610; 92950; 93005; 93010; 93306; 93971; 94002; 94003; 94640; 94660; 94760; 94762; 96365-59; 96366-59; 96375-59; 96376-59; 97110; 97162; 97166; 97530; 99291-25; A9270; C1751; C8929; C9113; C9399; J0248; J0282; J0461; J0690; J0696; J1100; J1644; J1650; J1815; J1940; J1956; J2060; J2405; J2550; J2704; J2930; J3010; J3360; J3370; J7030; J7040; J7050; J7060; J7120; P9047; Q9957; Q9967